=== PATIENT | male | born 1990 | race Caucasian/White ===

== ENCOUNTER 2023-08-07 12:45 | Outpatient (OUT) | payer BC, SELFPAY ==
--- NOTE | 2023-08-07 12:50 | US_ITS ---
[place] [id number] Patient Name: LYN PHIPPS MRN: [id number] date: 1990 Sex: M Assigned Patient Location: US Current Patient Location: US Accession/Order Number: [id number] Exam Date: 08/07/2023 13:05 Report Date: 08/07/2023 15:08 At the request of: KATELYN MARI Procedure: US venous doppler LE RT EXAMINATION: US venous doppler LE RT HISTORY: Right Calf Pain M79.661 COMPARISON: No relevant comparison available. TECHNIQUE: Grayscale, color and Doppler ultrasound FINDINGS: Region: Right leg Thrombus: None Flow: Normal Compressibility: Normal Augmentation: Normal US/US venous doppler LE RT IMPRESSION: No deep or superficial vein thrombus identified in the right leg *Exam performed in accordance with [facility] practice guidelines- Peripheral venous ultrasound, October 24, 2009. Electronically authenticated by: LY LOPEZ Date: 08/07/2023 15:08
== END 2023-08-07 12:46 | disposition home or self-care (01) ==
LOC: US 12:46
PROVIDERS: PCP Nurse Practitioner Family; Visit Provider Nurse Practitioner Family
DX: M79.661 Pain in right lower leg (principal)
CPT/HCPCS: 93971

== ENCOUNTER 2023-08-11 21:51 | Emergency (ER) | payer BC, SELFPAY ==
[2023-08-11 21:55] VITALS: BP 157/87; PULSE 95; RESP 16; TEMP 36.8; O2SAT 96; BMI 46.2
--- OUTSIDE RECORDS SUMMARY | 2023-08-11 21:55 | XMS_ITS | CCD ---
Author Name Unknown Address [address] [place] [id number] Organization [facility] Care Team Providers Care Stockbroking Dealer Name Role Phone Phong Chacko MD Unavailable Unavailable Dudley Tracey Unavailable Unavailable Dudley Tracey Unavailable Unavailable Unavailable Unavailable Unavailable ELIZABETH MARI Primary Care Physician JAUN ALI T Admitting Unavailable JAUN ALI T Attending Unavailable SELINA GAMINO Primary Care Unavailable SELINA GAMINO Referring Unavailable NAXIN ALI T Admitting Unavailable NAGENESISAS, ALI T Attending Unavailable NAXIN ALI T Referring Unavailable SELINA GAMINO Primary Care Unavailable Netta Wilson Referring Unavailable Netta Wilson Attending Unavailable Dudley Tracey Primary Care Unavailab Elizabeth Julien Unavailable QUINTON Stacy, DR MCCORMICK Consulting Unavailable JACEY, ELIZABETH Primary Care Unavailable QUINTON Stacy, DR MCCORMICK Attending Unavailable QUINTON Stacy, DR MCCORMICK Admitting Unavailable MIRYAM PEPPER Consulting Unavailable ELIZABETH MARI Consulting Unavailable ELIZABETH MARI Attending Unavailable JACEY ELIZABETH Admitting Unavailable JACEY, ELIZABETH Primary Care Unavailable JACEY ELIZABETH Consulting Unavailable ELIZABETH MARI Attending Unavailable JACEY, ELIZABETH Admitting Unavailable JACYE, ELIZABETH Primary Care Unavailable JACEY, ELIZABETH Primary Care Unavailable ALYSHA ., DR MARKS Attending Unavailable HOY ., DR MARKS Admitting Unavailable ALYSHA ., DR MARKS Consulting Unavailable NILL ., DR MARTIN Procedure Practitioner Man HERNANDEZ, DR SIDNEY Roberts Consulting Unavailable RANDALL ., MR COTA Consulting Unavailable DEVON SAAVEDRA Procedure Practitioner Unavailab le NILL ., DR MARTIN Consulting Unavailable BENJAMIN ZHANG Consulting Unavailable BETHANIE RODRIGUEZ Consulting Unavailable HANNAH Stacy, HITESH Consulting Unavailable SHAIKH Carmenza RO Consulting Unavailable MYRTLE EAST Consulting Unavailable GIULIA LABOY Consulting Unavailable DEVON SAAVEDRA Consulting Unavailable [facility], ELIZABETH Primary Care Unavailable ALYSHA ., DR MARKS Attending Unavailable HOY ., DR MARKS Consulting Unavailable HOY ., DR MARKS Admitting Unavailable JESSICA, DR LY Damon Consulting Unavailable NILL ., DR MARTIN Consulting Unavailable NILL ., DR MARTIN Consulting Unavailable NILL ., DR MARTIN Attending Unavailable NILL ., DR MARTIN Admitting Unavailable JACEY, ELIZABETH Primary Care Unavailable REINALDO, DR NEO Roberts Attending Unavailable REINALDO, DR NEO Roberts Admitting [facility]available [facility] Primary Care Unavailable REINALDO, DR NEO Roberts Consulting Unavailable LALITO ., ARTHUR OFSTER Consulting UnavailBETHANIE Munoz Consulting Unavailable Mario LEE Attending Unavailable Corinna Wayne Unavailable Allergies Allergy Classification Reported Allergen(s) Allergy Type Date of Onset Reaction(s) Facility Penicillins (antibiotic) (3 sources) Penicillins; Translations: [Penicillins] Drug Allergy [facility] Work Phone: (6 sources) Penicillin; Translations: [penicillin] Drug Allergy 2 [facility]al (disorder) General Surgery [place] (2 sources) Penicillin G Drug Allergy Unknown [facility] Other (1 source) Penicillins Drug allergy (disorder) 6 [facility] Repository Medications Current Medications Medication Drug Class(es) Dates Sig (Normalized) Sig (Original) lisinopril 10 mg oral tablet (9 sources) Angiotensin Converting Enzyme Inhibitor Start: 12-06-2021 take 1 tablet by mouth once daily lisinopril 10 mg Tab 10 mg = 1 tab(s), Oral, Daily, Refills(s) 0 Start Date: 12/06/21 Status: Ordered Start: 09-01-2017 take 1 tablet by myrna th once daily Lisinopril 10 MG Oral Tablet TAKE 1 TABLET BY MOUTH EVERY DAY Quantity: 90 Refills: 0 Ordered: 06-Dec-2017 DO Start : 01-Sep-2017 Active Lisinopril Activ e methylPREDNISolone 4 mg oral tablet (1 source) Corticosteroid Start: 05-02-2023 methylPREDNISo lone 4 MG as directed Orally for daily dose take half with breakfast, half with dinner for 6 days Apr, Active Completed/Discontinued Medications Medication Drug Class(es) Dates Sig (Normalized) Sig (Original) acetaminophen 325 mg / oxyCODONE hydrochloride 5 mg oral tablet (3 sources) Opioid Agonist Start: 11-17-2020 take 1 tablet by mouth every four to six hours as needed for pain oxyCODONE-Acetami nophen 5-325 MG Oral Tablet TAKE 1 TABLET EVERY 4 TO 6 HOURS NEEDED FOR PAIN. Quantity: 18 Refills: 0 Ordered: 17-Nov-2020 Phong Chacko MD Start : 17-Nov-2020 Active ascorbic acid 1000 mg oral tablet (3 sources) Vitamin C Start: 09-29-2020 take 1 tablet by mouth once daily QC Vitamin C 1000 MG Oral Tablet TAKE 1 TABLET DAILY. Quantity: 60 Refills: 1 Ordered: 17-Nov-2020 Phong Chacko MD Start : 29-Sep-2020 Active cycloSPORINE 0.5 mg/ml ophthalmic suspension (1 source) Calcineurin Inhibitor Immunosuppressant Start: 02-12-2021 take 1 drop(s) into the eye(s) twice daily Restasis 0.05 % Ophthalmic Emulsion INSTILL 1 DROP IN EACH EYE TWICE DAILY. Quantity: 1 Refills: 3 Ordered: 12-Feb-2021 Katie GARCIA, PhD, Netta Start : 12-Feb-2021 Active Ketorolac (2 sources) Nonsteroidal Anti-inflammatory Drug, Cyclooxygenase Inhibitor Start: 09-28-2016 Toradol per 15 mg Sep, 30 mg ofloxacin 3 mg/ml ophthalmic solution (1 source) Quinolone Antimicrobial Start: 11-17-2020 take 1 drop(s) into the eye(s) four times daily Ofloxacin 0.3 % Ophthalmic Solution INSTILL 1 DROP 4 times daily into left eye Quantity: 1 Refills: 2 Phong Chacko MD Start : 17-Nov-2020 Active 10 ML Bottle prednisoLONE Acetate 1 % Ophthalmic Suspension (1 source) Corticosteroid Start: 11-17-2020 take 1 drop(s) into the eye(s) four times daily prednisoLONE Acetate 1 % Ophthalmic Suspension INSTILL 1 DROP 4 times daily Into the Left eye starting After surgery. Shake bottle. Quantity: 1 Refills: 2 Phong Chacko MD Start : 17-Nov-2020 Active 15 ML Bottle predniSONE 20 mg oral tablet (2 sources) Start: 09-04-2022 take 1 tablet by mouth every twelve hours predniSONE 20 MG 1 tablet Orally 2 times a day for 5 day(s) Aug, Not-Taking triamcinolone acetonide 40 mg/ml injectable suspension (5 sources) Corticosteroid Start: 05-02-2023 Kenalog-40 Apr, 60 mg Start: 09-04-2022 Kenalog-40 Aug, 40 mg Start: 09-28-2016 KENALOG - 10 m g Sep, 40 mg Problems Active Problems Problem Classification Problem Date Documented Da te Episodic/Chronic Allergic reactions (2 sources) Unspecified contact dermatitis, unspecified cause; Translations: [Allergic contact dermatitis due to plants, except food] Episodic Asthma (6 sources) Asthma; Translations: [Unspecified asthma with (acute) exacerbation] Onset: 11-30-2021 12-06-2021 Chronic Biliary tract disease (6 sources) Bile duct leakage; Translations: [Disorder of biliary tract] 12-07-2021 Chronic Diseases of white blood cells (1 source) Elevated white blood cell count, unspecified; Translations: [ELEVATED WHITE BLOOD CELL COUNT UNS] Onset: 01-06-2022 Chronic Essential hypertension (5 sources) Hypertensive disorder; Translations: [Essential (primary) hypertension] Onset: 10-31-2022 12-06-2021 Chronic Inflammation; infection of eye (except that caused by tuberculosis or sexually transmitteddisease) (1 source) Atopic conjunctivitis; Translations: [Acute atopic conjunctivitis] Episodic Other aftercare (1 source) Other roasterman (current) drug therapy; Translations: [OTH SNF CURRENT DRUG THERAPY] Onset: 10-31-2022 Episodic Other eye disorders (3 sources) Bilateral keratoconus of corneas; Translations: [Keratoconus, unspecified] Episodic Other eye disorders (3 sources) Keratoconus, unstable, bilateral; Translations: [Keratoconus, unstable, bilateral] Episodic Other eye disorders (1 source) Dry eyes; Translations: [Tear film insufficiency, unspecified] Episodic Other nutritional; endocrine; and metabolic disorders (1 source) Morbid obesity; Translations: [Morbid (severe) obesity due to excess calories] Onset: 12-07-2021 Chronic Other nutritional; endocrine; and metabolic disorders (9 sources) Body mass index 40+ - severely obese; Translations: [Body mass index (BMI) 40.0-44.9, adult] Onset: 12-10-2021 12-07-2021 Chronic Other nutritional; endocrine; and metabolic disorders (4 sources) Obesity Onset: 11-30-2021 12-06-2021 Chronic Other nutritional; endocrine; and metabolic disorders (1 source) Morbid (severe) obesity due to excess calories; Translations: [MORBID SEVERE OBES D/T EXCESS KHANH] Onset: 12-14-2021 Chronic Other nutritional; endocrine; and metabolic disorders (1 source) Body mass index (BMI) 45.0-49.9, adult; Translations: [BODY MASS INDEX BMI 45.0-49.9 ADULT] Onset: 01-04-2022 Chronic Other nutritional; endocrine; and metabolic disorders (1 source) Disorder of urea cycle metabolism, unspecified; Translations: [DISORDER UREA CYCLE METABOLISM UNS] Onset: 01-06-2022 Chronic Other nutritional; endocrine; and metabolic disorders (1 source) Body mass index (BMI) 40.0-44.9, adult; Translations: [BODY MASS INDEX BMI 40.0-44.9 ADULT] Onset: 01-06-2022 Chronic Other nutritional; endocrine; and metabolic disorders (1 source) Obesity, unspecified; Translations: [OBESITY UNSPECIFIED] Onset: 01-06-2022 Chronic Other upper respiratory infections (1 source) Acute upper respiratory infection, unspecified; Translations: [ACUTE UP RESPIRATORY INFECTION UNS] Onset: 10-31-2022 Episodic Residual codes; unclassified (4 sources) Obstructive sleep apnea (adult) (pediatric); Translations: [OBSTRUCTIVE SLEEP APNEA] Onset: 02-28-2022 Chronic Residual codes; unclassified (1 source) Sleep apnea, unspecified; Translations: [SLEEP APNEA UNSPECIFIED] Onset: 01-04-2022 Chronic Residual codes; unclassified (1 source) Tobacco user; Translations: [Tobacco use] Onset: 12-07-2021 Episodic Residual codes; unclassified (4 sources) Snuff user 12-07-2021 Episodic Skin and subcutaneous tissue infections (2 sources) Onychia of finger; Translations: [Paronychia of fourth finger of right hand] Episodic Substance-related disorders (5 sources) Nicotine dependence; Translations: [Nicotine dependence, chewing tobacco, uncomplicated] Onset: 11-30-2021 12-06-2021 Chronic Unclassified (2 sources) COUGH, UNSPECIFIED; Translations: [COUGH, UNSPECIFIED] Onset: 10-31-2022 Unclassified (1 source) CONTACT W/AND (SUSP) EXPOS COVID-19; Translations: [CONTACT W/AND (SUSP) EXPOS COVID-19] Onset: 01-06-2022 Past or Other Problems Problem Classification Problem Date Documented Date Episodic/Chronic Abdominal pain (2 sources) Unspecified abdominal pain; Translations: [Right upper quadrant pain] Onset: 12-28-2021 Episodic Biliary tract disease (18 sources) Acute cholecystitis; Translations: [Acute cholecystitis] Onset: 11-28-2021 Episodic Complications of surgical procedures or medical care (1 source) Other postprocedural complications and disorders of digestive system; Translations: [OTH POSTPROC COMP D/O DIGESTIVE SYS] Onset: 01-06-2022 Episodic Fever of unknown origin (5 sources) Fever, unspecified; Translations: [FEVER UNSPECIFIED] Onset: 12-23-2021 Episodic Fluid and electrolyte disorders (2 sources) Dehydration; Translations: [Hypo-osmolality and hyponatremia] Onset: 01-04-2022 Episodic Other screening for suspected conditions (not mental disorders or infectious disease) (1 source) Other specified abnormal findings of blood chemistry; Translations: [OTH SPEC ABNORMAL FINDINGS BLD CHEM] Onset: 01-06-2022 Episodic Residual codes; unclassified (1 source) Acquired absence of other specified parts of digestive tract; Translations: [ACQ ABSENCE OTH PART DIGESTV TRACT] Onset: 12-28-2021 Episodic Residual codes; unclassified (1 source) Tobacco use; Translations: [TOBACCO USE] Onset: 12-14-2021 Episodic Residual codes; unclassified (1 source) Laparoscopic surgical procedure converted to open procedure; Translations: [LAP SURG PROC CONVERT TO OPEN PROC] Onset: 01-06-2022 Episodic Unclassified (2 sources) Sprain of left ankle; Translations: [Left ankle sprain] Unclassified (1 source) COUGH, UNSPECIFIED; Translations: [COUGH, UNSPECIFIED] Onset: 10-29-2022 NEGATED: Highlighted row has not occurred!Residual codes; unclassified (10 sources) Disease Episodic Results Test Name Value Interpretation Reference Range Facility XR CHEST 2 Von 10-29-2022 XR CHEST 2 V EXAM: XR CHEST 2 V INDICATION: SHORTNESS OF BREATH. COMPARISON: Chest radiograph 12/02/2021. TECHNIQUE: Two views of the chest FINDINGS: Normal cardiomediastinal contours. Clear lungs. No pleural effusion or pneumothorax. No acute osseous abnormality. IMPRESSION: No acute cardiopulmonary process. Electronically authenticated by: MIRYAM PEPPER Date: 2022-10-29 11:56 Normal [facility] Ophthalmic Eye Examon 2021 Ophthalmic Eye Exam DOCUMENT REVIEWED BY: Netta Chen OD PhD DOCUMENT SIGNED ELECTRONICALLY BY Netta Chen OD, PhD ON 04/19/2022 03:57:[address] [address] [phone] THIS DOCUMENT WAS CREATED ON: 04/19/2022 03:56:22 PM BY: Netta Cohn performed [id number] Exam Date: Tuesday, April 19, 2022 PATIENT NAME: JOSEPH SCOTT DATE: 1990 AGE: 32 GENDER: Male RACE: Other Race History Chief Complaint/Reason For Visit: Problem-Routine CL eye exam, Vision is stable, some scratchiness, 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 Netta Chen OD PhD and scribed by Mio Chen OD, PhD PAST MEDICAL HISTORY: OCULAR SIGNIFICANT: Hypertension CURRENT MEDICATIONS: Lisinopril 10 MG Oral Tablet - #90 Tablet, TAKE 1 TABLET BY MOUTH EVERY DAY[Reported] oxyCODONE-Acetaminophen 5-325 MG Oral Tablet - #18 Tablet, TAKE 1 TABLET EVERY 4 TO 6 HOURS NEEDED FOR PAIN., NO REFILLS, Evaluate: 20-Nov-2020 QC Vitamin C 1000 MG Oral Tablet - #60 Tablet, TAKE 1 TABLET DAILY., 1 refill, Evaluate: 17-Mar-2021 Restasis 0.05 % Ophthalmic Emulsion - #1 60 Unit Plas Cont, Emulsion, INSTILL 1 DROP IN EACH EYE TWICE DAILY., 3 refills, Evaluate ALLERGIES: Penicillins REVIEW OF SYSTEMS: CARDIOVASCULAR:HTN All other Review Of Systems negative Exam ORIENTATION, MOOD AND AFFECT: Alert AND oriented x3 RIGHT EYE LEFT EYE UNCORRECTED VA N/A N/A MANIFEST REFRACTION -2.00 -4.25 x 055 -5.00 -3.50 x 100 BEST AGUSTO FINAL VA 20/300 20/150 OVER REFRACTION -0.50 SPHER -0.75 SPHER OVER REFRACTION VA 20/25+1 20/25-3 VISION WITH CONTACT LENSES 20/40+2 20/40-2 PRESSURE METHOD: Applanation Applanation PRESSURES: 16 16 DATE-TIME: 04/19/2022 10:32:01 AM 04/19/2022 10:32:01 AM RIVER CAPTAIN: jessica lopez EXTERNAL EYE EXAM: LID: Good Position Good Position PUPIL: PERRL/no APD PERRL/no APD ADNEXA: Normal Normal MUSCLE BALANCE: Ortho OCULAR MOTILITY: Full ANTERIOR SEGMENT EXAM: TEARFILM: Good Good CONJUNCTIVA: 2+ injection; 3+ inferior and 2+ injection; 3+ inferior and superior papillary rxn and superior papillary rxn and erythema erythema CORNEA: F ring, thinning, moderate F ring, thinning, moderate central scars/moderate haze central haze ANTERIOR CHAMBER: Deep and quiet Deep and quiet IRIS: Round and reactive Round and reactive LENS: Clear Clear ANTERIOR VITREOUS: Clear Clear FUNDUS EXAM: DILATION and NUMBING DROPS: Tropicamine 1% OU 04/19/2022 10:32:02 AM CUP TO DISC: .3 .3 OPTIC DISC: [place] and sharp [place] and sharp VITREOUS: Clear Clear MACULA: Normal reflex Normal reflex VESSELS: Normal Normal PERIPHERY: No tears, breaks, or holes No tears, breaks, or holes VIEW IN OUT: VIEW OUT VIEW OUT CONTACT LENS FITTING: OD LENSTYPE: RGP SERIES: synergeyes VS BASECURVE: 8.4 DIAMETER: 16.0 DVA: 20-2 OVERREFRACT: plano ROTATION: slight POSITION: excellent MOVEMENT: yes, slight COVERAGE OVER EYE: excellent RESULT: Acceptable POWER: +1.50 FLPOSITION: 300 clearance VAOR: 20/20-2 COLOR: Blue RESULTANT POWER: +1.50 LENS NOTES: VLT 3600 34-40 edge BLUEDOT: Y LENTICULAR: N RENDERING DOCTOR: Netta Chen OD PhD PROTEIN BUILDUP: surface deposits=excessive OD LENSTYPE: RGP SERIES: synergeyes VS BASECURVE: 8.4 DIAMETER: 16.0 DVA: 20-2 OVERREFRACT: plano ROTATION: slight POSITION: excellent MOVEMENT: yes, slight COVERAGE OVER EYE: excellent RESULT: Pending POWER: +1.50 FLPOSITION: 300 clearance VAOR: 2020-2 COLOR: Blue RESULTANT POWER: +1.50 LENS NOTES: VLT 3600 34-40 edge BLUEDOT: Y LENTICULAR: N RENDERING DOCTOR: Netta Chen OD PhD PROTEIN BUILDUP: surface deposits=excessive OD LENSTYPE: RGP SERIES: synergeyes VS BASECURVE: 8.4 DIAMETER: 16.0 DVA: 20-2 OVERREFRACT: plano ROTATION: slight POSITION: excellent MOVEMENT: yes, slight COVERAGE OVER EYE: excellent RESULT: Pending POWER: +1.50 FLPOSITION: 300 clearance VAOR: 20-2 COLOR: Blue RESULTANT POWER: +1.50 LENS NOTES: VLT 3600 34-40 edge BLUEDOT: Y LENTICULAR: N RENDERING DOCTOR: Netta Chen OD PhD OD LENSTYPE: RGP SERIES: synergeyes VS BASECURVE: 8.4 DIAMETER: 16.0 DVA: 20-2 OVERREFRACT: plano ROTATION: slight POSITION: excellent MOVEMENT: yes, slight COVERAGE O (more content not included)... Normal [employer] 2022 Forms [id number]:127 Normal [facility] Ambulatory Visit Summaryon 0 01-07-2022 Ambulatory Visit Summary JOSEPH SCOTT :1990 Visit Date:01/07/2022 Ambulatory Visit Instructions Your Diagnosis Acute gangrenous cholecystitis Your Care Team Attending Physician - JASIEL THAYER, Mario Roberts Primary Care Physician - ELIZABETH MARI CNP This Is Your Medications List Contact prescribing physician if questions or concerns lisinopril (lisinopril 10 mg Tab) Procedures Performed Cholecystectomy (11/29/2021), EGD - Esophagogastroduodenoscopy. Medications What How Much When Instructions Unchanged lisinopril (lisinopril 10 mg Tab) 1 Tablets By Mouth Every day Contact prescribing physician if questions or concerns Allergies penicillin (Hives) Problems Ongoing - Any problem that you are currently receiving treatment for. Acute gangrenous cholecystitis Asthma BMI 40.0-44.9, adult Cystic duct leak HTN (hypertension) Nicotine dependence Obesity Obesity, morbid, BMI 40.0-49.9 Snuff user Normal [facility] General Surgery Office/Clini c Noteon 01-07-2022 General Surgery Office/Clinic Note Chief Complaint post operative follow up HPI Staff 39 day post operative follow up post cholecystectomy. Reports intermittent RUQ pain, denies incisional pain. Denies bleeding or drainage from incision. Bowels moving well. History of Present Illness 5 1/2 weeks s/p subtotal fenestrated open cholecystectomy for gangrenous cholecystitis, and ERCP with stent placement; doing well, had stent removed 9 days ago; had episode of LUQ pain and fever 2 weeks ago, negative w/u at [facility] ED, including chest/abd/pelvis ct, blood work and blood cultures; some intermittent sharp RUQ pains; not taking any pain meds. no fevers since then, normal bms, eating well. Review of Systems ROS - Provider Constitutional: no fever, no sweats, no weight loss. Eyes: no glasses, no blurred vision, no visual loss. ENMT: no dentures, no hoarseness, no swallowing difficulties, no hearing loss, no ear infection(s), no nose bleeds. Cardiovascular: normal blood pressure, no chest pain, regular heartbeat, no heart murmur. Respiratory: no shortness of breath, no cough, no asthma, no wheezing. Gastrointestinal: no nausea, no vomiting, no diarrhea, no constipation, no blood in stool, no change in bowel habits, mild abdominal pain, no hepatitis. Genitourinary: no kidney stones, no urine infection, no dysuria. Musculoskeletal: no pain, no weakness. Skin: no changing moles, no rash, no skin lumps. Neurologic: no seizures, no epilepsy, no headache. Psychiatric: no emotional or psychiatric problem. Heme/Lymph: no bleeding problems, no anemia, no blood clots, no transfusions. Allergy/Immunologic: no swollen lymph nodes/glands, no IV drug abuse. Other: Additional ROS info: Except as noted in the above Review of Systems and in the History of Present Illness, all other systems have been reviewed and are negative or noncontributory. Physical Exam abd: obese, soft, normal bs, incisions healing well, no hernias, no drainage. Assessment/Plan 1. Acute gangrenous cholecystitis (K81.0: Acute cholecystitis) doing well; return to work without restrictions; recommend abd wall support/belt if heavy lifting; call with problems/questions Follow-up No qualifying data available Problem List/Past Medical History Ongoing Acute gangrenous cholecystitis Asthma BMI 40.0-44.9, adult Cystic duct leak HTN (hypertension) Nicotine dependence Obesity Obesity, morbid, BMI 40.0-49.9 Snuff user Historical No qualifying data Procedure/Surgical History Cholecystectomy (11/29/2021), EGD - Esophagogastroduodenoscopy. Medications lisinopril 10 mg Tab, 10 mg= 1 tab(s), Oral, Daily Allergies penicillin (Hives) Social History Alcohol - Denies Alcohol Use, 12/07/2021 Substance Abuse - Denies Substance Abuse, 12/07/2021 Tobacco Former smoker, quit more than 30 days ago Tobacco Use:. Smokeless tobacco user within last 30 days Smokeless Tobacco Use:. Cigarettes, Oral, Started age 15.0 Years. Stopped age 21 Years. Yes, 12/07/2021 Family History Diabetes mellitus type 2: Mother. Hypertension: Mother and Sister. Primary malignant neoplasm of prostate: Father. Normal [facility] Comment on above: Result Comment: Elec tronically Signed By: JASIEL THAYER, Mairo R\.br\Date and Time Signed: 01/07/22 10:53 EDT Provider Letter FTon 01-07 Provider Letter [facility] January 07, 2022 JOSEPH SCOTT [address] [place] [id number] JOSEPH SCOTT 1990 To Whom It May Concern, The above named person may return to work without restrictions 2022. Sincerely, Dr. Mario Lee MD General Surgery [facility] Endoscopy Reporton Endoscopy Report MR#: [id number] [facility] Pt. Name: Joseph Scott Surgery Date: 12/29/2021 Room #: 0C Date of : 1990 PROCEDURE NOTE ATTENDING: Jacob Zamorano M.D. PROCEDURE PERFORMED: ERCP with stent removal. MEDICATIONS: General anesthesia administered by Anesthesia team. INDICATIONS: History of bile leak, status post biliary stent placement. NUT PROCESSING SUPERVISOR: Branden Lui MD, Gastroenterology fellow. PROCEDURE IN DETAIL: After obtaining the informed consent, which included the risks, benefits, alternatives, and complications; complications including bleeding, perforation, and reaction to medications in addition to pancreatitis, infection, diabetes, surgery, prolonged hospitalization, and remote possibility of , the patient agreed to proceed with the procedure. The patient was placed in the semiprone position. After receiving general anesthesia, administered by anesthesia team, after which the Olympus video side-viewing duodenoscope was introduced through the mouth down to the esophagus, stomach, then to the 1st and 2nd part of the duodenum with no difficulties. The major papilla was identified and the previously placed metallic fully covered biliary stent was noted protruding through the papilla into the duodenal lumen. The stent was removed with the rat-tooth forceps. With the use of the RX-44 sphincterotome loaded with a 0.035 inch guidewire, the common bile duct was re-cannulated and contrast was injected. The sphincterotome was then removed over the guidewire and a 12-15 mm injecting above retrieval balloon catheter was then advanced over the guidewire into the common bile duct. Occlusive cholangiogram was performed and the cystic duct was identified. No contrast extravasation was noted. The balloon with the guidewire were both removed, followed by removal of the scope. The procedure was performed under fluoroscopic guidance and I did the interpretation of the fluoroscopic images. The patient tolerated the procedure well and was sent to the recovery room in stable condition. IMPRESSION: 1. Successful removal of previously placed metallic biliary stent. 2. Complete resolution of the bile leak. Occlusive cholangiogram revealed no extravasation of contrast at the cystic duct stump. PLAN: 1. We will see the patient on a p.r.n. basis. 2. Clear liquid diet today and advance in a.m. I was present in the endoscopy room during the entire procedure to supervise the followup. Electronically Signed by: Jacob Zamorano M.D. 01/13/2022 12:34 P Jacob Zamorano M.D. Date Dict: 12/29/2021/08:37 P/Jacob Zamorano M.D. Date Trans: 12/30/2021 08:11 A/zuleyka [id number] cc: Selina Gamino M.D. [address], [facility] [id number] [place] [facility] ERCPon 12-29-2021 ERCP [facility] Department of Radiology [address] [place] [id number] Patient Name: JOSEPH SCOTT : 1990 Sex: M Age: Race: White Pt. Location: [facility] [place] Patient Status: Ordered Date: 12/29/2021 5:00:00 AM Completed Date: 12/29/2021 02:07 PM Requesting Provider: JACOB ZAMORANO Attending Provider: JACOB ZAMORANO Report Copy To: Signs & Symptoms: K83.9 Disease of biliary tract, unspecified I10 History: [place] Comments: , Appointment Date: 12/29/2021 , Appointment Time: 1300 , Appointment Date: 12/29/2021 , Appointment Time: 1300 , , , Ordering Provider - JULIAN RIVERA MD , Exam: ERCP ERCP 12/29/2021 2:07 PM CLINICAL INDICATIONS: K83.9 Disease of biliary tract, unspecified I10 TECH COMMENTS:ERCP with dr. zamorano fl time 3:22 minutes 120.69 mGy 13 images + dose COMPARISON: None. FINDINGS: 13 images are submitted for review from ERCP performed by the GI lab. Endoscope is passed in an antegrade fashion, and the tip of the endoscope lies in the second portion of the duodenum. The common bile duct was cannulated and contrast injected in a retrograde direction, opacifying the biliary tree. The patient's wall stent was removed.. Fluoroscopy Time: 3.22 minutes. IMPRESSION: This dictation is for documentation purposes only. Please see the GI procedure note for further details. Electronically signed: Gina Otoole. Transcribed by: [email or web address], User Resident: Electronically Signed by: GINA OTOOLE @ 12/30/2021 02:58 PM Normal [facility] Comment on above: Order Comment: , Kamaljit ointment Date: 12/29/2021 , Appointment Time: 1300 , Appointment Date: 12/29/2021 , Appointment Time: 1300 , , , Ordering Provider - JULIAN RIVERA MD , POC GLUCOSE LABon 12-29-2021 Glucose [Mass/Vol] 90 mg/dL Normal 70-100 [facility] Comment on above: Performed By: #### [id number] #### [facility] [address] [place] [address], [facility] AMYLASEon 12-23-2021 Amylase [Catalytic activity/Vol] 58 U/L Normal 25-115 [facility] Comment on above: Performed By: #### E RUR #### [facility] [address] [address] [address] Wallace Chandler CBC AUTO DIFFon 12-23-2021 BASO # 0.0 103/ul Normal 0.0-0.1 [facility] Comment on above: Performed By: #### C BC #### [facility] [address] [place] [address] Dr. Wallace Chandler Basophils/100 WBC (Bld) 0.4 % Normal 0.2-2.0 [facility] Comment on above: Performed By: #### C BC #### [facility] [address] [place] [address] Dr. Wallace Chandler EO # 0.4 103/ul Normal 0.0-0.7 [facility] Comment on above: Performed By: #### C BC #### [facility] [address] [place] [address] Dr. Wallace Chandler Eosinophils/100 WBC (Bld) 4.3 % Normal 0.9-7.0 [facility] Comment on above: Performed By: #### C BC #### [facility] [address] [place] [address] Dr. Wallace Chandler Erythrocyte distribution width (RBC) [Ratio] 12.5 % Normal 11.0-15.0 [facility] Comment on above: Performed By: #### C BC #### [facility] [address] [place] [address] Dr. Wallace Chandler Hematocrit (Bld) [Volume fraction] 46.8 % Normal 42.0-54.0 [facility] Comment on above: Performed By: #### C BC #### [facility] [address] [place] [address] Dr. Wallace Chandler Hemoglobin (Bld) [Mass/Vol] 15.1 g/dL Normal 14.0-18.0 [facility] Comment on above: Performed By: #### C BC #### [facility] [address] [place] [address] Dr. Wallace Chandler IG # 0.03 10e3/ul Normal 0.00-0.03 [facility] Comment on above: Performed By: #### C BC #### [facility] [address] [place] [address] Dr. Wallace Chandler IG % 0.3 % Normal 0.0-0.5 [facility] Comment on above: Performed By: #### C BC #### [facility] [address] [place] [address] Dr. Wallace Chandler LYMPH # 1.2 103/ul Normal 1.2-3.8 [facility] Comment on above: Performed By: #### C BC #### [facility] [address] [place] [address] Dr. Wallace Chandler Lymphocytes/100 WBC (Bld) 11.9 % Critically low 20.5-60.0 [facility] Comment on above: Performed By: #### C BC #### [facility] [address] [place] [address] Dr. Wallace Chandler MANUAL DIFF REQ NO Normal [facility] Comment on above: Performed By: #### C BC #### [facility] [address] [place] [address] Dr. Wallace Chandler MCH (RBC) [Entitic mass] 28.3 pg Normal 25.9-34.0 [facility] Comment on above: Performed By: #### C BC #### [facility] [address] [place] [address] Dr. Wallace Chandler MCHC (RBC) [Mass/Vol] 32.3 g/dL Normal 29.9-35.2 [facility] Comment on above: Performed By: #### C BC #### [facility] [address] [place] [address] Dr. Wallace Chandler MCV (RBC) [Entitic vol] 87.8 fL Normal 80.0-94.0 [facility] Comment on above: Performed By: #### C BC #### [facility] [address] [address] [address] Wallace Chandler MONO # 0.9 103/ul Critically high 0.3-0.8 [facility] Comment on above: Performed By: #### C BC #### [facility] [address] [address] [address] Wallace Chandler Monocytes/100 WBC (Bld) 8.4 % Normal 1.7-12.0 [facility] Comment on above: Performed By: #### C BC #### [facility] [address] [place] [address] Dr. Wallace Chandler NEUT # 7.7 103/ul Critically high 1.4-6.5 [facility] Comment on above: Performed By: #### C BC #### [facility] [address] [place] [address] Dr. Wallace Chandler Neutrophils/100 WBC (Bld) 74.7 % Normal 43.0-75.0 [facility] Comment on above: Performed By: #### C BC #### [facility] [address] [place] [address] Dr. Wallace Chandler Platelet mean volume (Bld) [Entitic vol] 9.3 fL Critically low 9.5-13.5 [facility] Comment on above: Performed By: #### C BC #### [facility] [address] [place] [address] Dr. Wallace Chandler PLT 345 103/ul Normal 150-450 [facility] Comment on above: Performed By: #### C BC #### [facility] [address] [place] [address] Dr. Wallace Chandler RBC 5.33 106/ul Normal 4.70-6.10 [facility] Comment on above: Performed By: #### C BC #### [facility] [address] [place] [address] Dr. Wallace Chandler WBC 10.4 103/ul Normal 4.0-11.0 [facility] Comment on above: Performed By: #### C BC #### [facility] [address] [address] [address] Wallace Chandler CTA CHEST WO W CONon 12-23-2 022 CTA CHEST WO W CON EXAM: CT ABD/PELV W CON, CTA CHEST WO W CON REASON FOR EXAM: Male, 31 years, Fever. TECHNIQUE: Computed tomography of the chest, abdomen and pelvis is performed in the axial projection from the lung apices to the pubic symphysis. Sagittal and coronal reconstructed images are performed. Dose reduction techniques were achieved by using automated exposure control and/or adjustment of mA and/or KVP according to patient size and/or use of iterative reconstruction technique. A total of 100 mL Omnipaque 350 IV contrast was given. Study was performed without oral contrast. COMPARISON: CT 11/28/2021 FINDINGS: CT CHEST: There is right basilar atelectasis. No pleural effusion. No mediastinal or hilar adenopathy. No pericardial effusion identified. Heart size is normal. There is suboptimal opacification of the pulmonary arteries. As visualized, no large or central pulmonary embolism. Normal thoracic aorta. Liver: There is elevation of the right hemidiaphragm. There are small hypodensities scattered throughout the liver similar to prior study. These may represent tiny cysts or hamartomas. There is a tiny amount of pneumobilia, likely reflecting recent cholecystectomy. Gallbladder: There has been a cholecystectomy. There is a small amount of soft tissue in the gallbladder fossa, measuring 1.7 x 4.6 cm, which may represent postoperative edema. A small hematoma or seroma could also be considered. There is a stent within the common duct extending to the duodenum. There is a small amount of debris or fluid within the stent. Spleen: The spleen is normal. Pancreas: The pancreas is normal. Adrenal glands: The adrenal glands are normal bilaterally. Right kidney: The kidney is normal in size. There is no renal calculus or hydronephrosis. Left kidney: The kidney is normal in size. There is no renal calculus or hydronephrosis. Stomach: The stomach is normal. Small bowel: The small bowel is normal. Large bowel: The colon is normal. Appendix: The appendix is visualized, and is normal. Aorta: The aorta is normal IVC: The IVC is normal. Retroperitoneum: Normal retroperitoneum. Bladder: The bladder is normal. Pelvic organs: Normal prostate gland. Abdominal wall: There are subtle postoperative changes to the anterior abdominal wall. No abnormal postoperative fluid collection within the abdominal wall. Osseous structures: Normal bony structures. IMPRESSION: Contrast bolus timing is limited for evaluation of pulmonary embolism. No large or central pulmonary embolus. Thoracic aorta. Elevated right hemidiaphragm with right basilar atelectasis. Postoperative changes of cholecystectomy since the prior study. There is a minimal amount of soft tissue in the gallbladder fossa, likely representing evolving postoperative edema. A small hematoma or seroma is not completely excluded. No significant inflammatory changes are seen to suggest abscess. Biliary stent is noted, with some debris/bile within the biliary stent. Additional nonacute findings, as detailed above. Electronically authenticated by: BETHANIE RODRIGUEZ Date: 2021-12-23 21:49 Normal [facility] CULTURE BLOODon 12-23-2021 Microscopic examination of blood, culture Culture Observations: NO GROWTH AT 5 DAYS. Isolate 1 [id number] Normal [facility] Comment on above: Performed By: #### L CHARLOTTE PLATA, BMP #### [facility] [address] [address] [address] Wallace Chandler Microscopic examination of blood, culture Culture Observations: NO GROWTH AT 5 DAYS. Isolate 1 [id number] Normal [facility] Comment on above: Performed By: #### L CHARLOTTE PLATA, BMP #### [facility] [address] [address] [address] Wallace Chandler [facility] SARS-CoV-2 (COVID-19) RNA ADRIAN+probe Ql (Unsp spec) Not detected Normal NOT DETECTED [facility] Comment on above: Result Comment: When diagnostic testing is negative, the possibility of a false negative should be considered in the context of a patient's recent exposures and the presence of clinical signs and symptoms consistent with SARS-CoV-2. This test is not yet approved or cleared by the [place] FDA. When there are no FDA-approved or cleared tests available, and other criteria are met, FDA can make tests available under an emergency access mechanism called an Emergency Use Authorization (EUA). The EUA for this test is supported by the [place] of Health and Human Service's declaration that circumstances exist to justify the emergency use of in vitro diagnostics for the detection and/or diagnosis of the virus that causes COVID-19. This EUA will remain in effect for the duration of the COVID-19 declaration justifying emergency of IVDs, unless it is terminated or revoked by the FDA (after which the test may no longer be used). Performed By: #### L CHARLOTTE PLATA BMP #### [facility] [address] [place] [address] Dr. Wallace Chandler ER URINE PROFILEon 2 Bilirubin Ql (U) Negative Normal NEGATIVE [facility] Comment on above: Performed By: #### E RUR #### [facility] [address] [place] [address] Dr. Wallace Chandler Clarity (U) CLEAR Normal CLEAR [facility] Comment on above: Performed By: #### E RUR #### [facility] [address] [place] [address] Dr. Wallace Chandler Color (U) YELLOW Normal YELLOW [facility] Comment on above: Performed By: #### E RUR #### [facility] [address] [place] [address] Dr. Wallace Chandler ERUAHD A micrscopic examina tion will be performed if indicated. Normal [facility] Comment on above: Performed By: #### E RUR #### [facility] [address] [place] [address] Dr. Wallace Chandler Glucose Ql (U) Negative Normal NEGATIVE [facility] Comment on above: Performed By: #### E RUR #### [facility] [address] [place] [address] Dr. Wallace Chandler Hemoglobin Ql (U) Negative Normal NEGATIVE [facility] Comment on above: Performed By: #### E RUR #### [facility] [address] [place] [address] Dr. Wallace Chandler Ketones Ql (U) Negative Normal NEGATIVE [facility] Comment on above: Performed By: #### E RUR #### [facility] [address] [place] [address] Dr. Wallace Chandler LEUKOCYTES Negative Normal NEGATIVE [facility] Comment on above: Performed By: #### E RUR #### [facility] [address] [place] [address] Dr. Wallace Chandler Nitrite Ql (U) Negative Normal NEGATIVE [facility] Comment on above: Performed By: #### E RUR #### [facility] [address] [place] [address] Dr. Wallace Chandler pH (U) 6.0 [pH] Normal 5-9 [facility] Comment on above: Performed By: #### E RUR #### [facility] [address] [place] [address] Dr. Wallace Chandler SPEC GRAVITY 1.025 Normal 1.005-<=1.02 5 [facility] Comment on above: Performed By: #### E RUR #### [facility] [address] [place] [address] Dr. Wallace Chandler UA PROTEIN Negative Normal NEGATIVE/ TRACE [facility] Comment on above: Performed By: #### E RUR #### [facility] [address] [place] [address] Dr. Wallace Chandler UR MICRO IND NOT INDICATED Normal [facility] Comment on above: Performed By: #### E RUR #### [facility] [address] [place] [address] Dr. Wallace Chandler Urobilinogen Qn (U) 0.2 {Vladimir'U}/dL Normal 0.2 - 1.0 [facility] Comment on above: Performed By: #### E RUR #### [facility] [address] [place] [address] Dr. Wallace Chandler INFLUENZA A AND B AGon 12-23 INFLUANEGH SEE BELOW Normal [facility] Comment on above: Result Comment: Nega tive for Flu A protein angiten. Infection due to Flu A cannot be ruled out. Flu A angiten in the sample may be below the detection limit of the test. Performed By: #### E RUR #### [facility] [address] [place] [address] Dr. Wallace Chandler INFLUBNEGH SEE BELOW Normal [facility] Comment on above: Result Comment: Nega tive for Flu B protein antigen. Infection due to Flu B cannot be ruled out. Flu B antigen in the sample may be below the detection limit of the test. Performed By: #### E RUR #### [facility] [address] [place] [address] Dr. Wallace Chandler INFLUENZA A AG Negative Normal NEGATIVE SEE COMMENT [facility] Comment on above: Performed By: #### E RUR #### [facility] [address] [place] [address] Dr. Wallace Chandler INFLUENZA B AG Negative Normal NEGATIVE SEE COMMENT [facility] Comment on above: Performed By: #### E RUR #### [facility] [address] [place] [address] Dr. Wallace Chandler INTERNAL CONTROLS Within Normal Limits Normal Wi thin Normal Limits [facility] Comment on above: Performed By: #### E RUR #### [facility] [address] [place] [address] Dr. Wallace Chandler LACTATE/LACTIC ACIDon 2021 Lactate [Moles/Vol] 1.0 mmol/L Normal 0.4-1.9 [facility] Comment on above: Performed By: #### L ACT #### [facility] [address] [place] [address] Dr. Wallace Chandler LIPASEon 12-23-2021 Lipase [Catalytic activity/Vol] 124.0 U/L Normal 73.0-393.0 [facility] Comment on above: Performed By: #### E RUR #### [facility] [address] [place] [address] Dr. Wallace Chandler PH VENOUS BLOODon 12-23-2021 PCO2 VENOUS 42.6 mmHg Normal 40.0-52.0 [facility] Comment on above: Performed By: #### C BC #### [facility] [address] [place] [address] Dr. Wallace Chandler pH VENOUS 7.399 Normal 7.330-7.430 [facility] Comment on above: Performed By: #### C BC #### [facility] [address] [place] [address] Dr. Wallace Chandler PROF 14(COMP METB)on 022 Albumin [Mass/Vol] 3.8 g/dL Normal 3.4-5.0 [facility] Comment on above: Performed By: #### C BC #### [facility] [address] [place] [address] Dr. Wallace Chandler Albumin/Globulin [Mass ratio] 0.8 {ratio} Normal [facility] Comment on above: Performed By: #### C BC #### [facility] [address] [place] [address] Dr. Wallace Chandler ALP [Catalytic activity/Vol] 93 U/L Normal 46-116 [facility] Comment on above: Performed By: #### C BC #### [facility] [address] [place] [address] Dr. Wallace Chandler ALT [Catalytic activity/Vol] 83 U/L Critically high 16-63 [facility] Comment on above: Performed By: #### C BC #### [facility] [address] [place] [address] Dr. Wallace Chandler Anion gap [Moles/Vol] 13.1 mmol/L Normal [facility] Comment on above: Performed By: #### C BC #### [facility] [address] [place] [address] Dr. Wallace Chandler AST [Catalytic activity/Vol] 20 U/L Normal 15-37 [facility] Comment on above: Performed By: #### C BC #### [facility] [address] [place] [address] Dr. Wallace Chandler Bilirubin [Mass/Vol] 0.7 mg/dL Normal 0.2-1.0 [facility] Comment on above: Performed By: #### C BC #### [facility] [address] [place] [address] Dr. Wallace Chandler Calcium [Mass/Vol] 9.4 mg/dL Normal 8.5-10.1 [facility] Comment on above: Performed By: #### C BC #### [facility] [address] [place] [address] Dr. Wallace Chandler Chloride [Moles/Vol] 101 mmol/L Normal 98-107 [facility] Comment on above: Performed By: #### C BC #### [facility] [address] [address] [address] Wallace Chandler CO2 [Moles/Vol] 26.5 mmol/L Normal 21.0-32.0 [facility] Comment on above: Performed By: #### C BC #### [facility] [address] [address] [address] Wallace Chandler Creatinine [Mass/Vol] 1.01 mg/dL Normal 0.70-1.30 [facility] Comment on above: Performed By: #### C BC #### [facility] [address] [place] [address] Dr. Wallace Chandler EGFR-AF NIGERIEN >60 Normal >=60 [facility] Comment on above: Performed By: #### C BC #### [facility] [address] [place] [address] Dr. Wallace Chandler EGFR-NON AF NIGERIEN >60 Normal >=60 [facility] Comment on above: Performed By: #### C BC #### [facility] [address] [place] [address] Dr. Wallace Chandler Globulin (S) [Mass/Vol] 4.8 g/dL Normal [facility] Comment on above: Performed By: #### C BC #### [facility] [address] [place] [address] Dr. Wallace Chandler Glucose [Mass/Vol] 105 mg/dL Normal 74-106 [facility] Comment on above: Performed By: #### C BC #### [facility] [address] [place] [address] Dr. Wallace Chandler Potassium [Moles/Vol] 3.6 mmol/L Normal 3.5-5.1 [facility] Comment on above: Performed By: #### C BC #### [facility] [address] [place] [address] Dr. Wallace Chandler Protein [Mass/Vol] 8.6 g/dL Critically high 6.4-8.2 [facility] Comment on above: Performed By: #### C BC #### [facility] [address] [place] [address] Dr. Wallace Chandler Sodium [Moles/Vol] 137 mmol/L Normal 136-145 [facility] Comment on above: Performed By: #### C BC #### [facility] [address] [place] [address] Dr. Wallace Chandler Urea nitrogen [Mass/Vol] 13.0 mg/dL Normal 7.0-18.0 [facility] Comment on above: Performed By: #### C BC #### [facility] [address] [place] [address] Dr. Wallace Chandler Urea nitrogen/Creatini ne [Mass ratio] 12.9 mg/mg Normal [facility] Comment on above: Performed By: #### C BC #### [facility] [address] [place] [address] Dr. Wallace Chandler PROTIMEon 12-23-2021 INR Coag (PPP) [Relative time] 1.01 {INR} Normal [facility] Comment on above: Performed By: #### L CHARLOTTE PLATA, BMP #### [facility] [address] [place] [address] Dr. Wallace Chandler INR GUIDELINES SEE BELOW Normal [facility] Comment on above: Result Comment: TAAWNNA RED INR: 2.0 - 3.0 CONDITIONS NOT LISTED BELOW 2.5 - 3.5 FOR PROSTHETIC HEART VALVE REPLACEMENT 2.5 - 3.5 RECURRENT THROMBOSIS Performed By: #### L CHARLOTTE PLATA, BMP #### [facility] [address] [place] [address] Dr. Wallace Chandler PT Coag (PPP) [Time] 10.9 s Normal 9.0-11.6 [facility] Comment on above: Performed By: #### L CHARLOTTE PLATA, BMP #### [facility] [facility] [address] [place] [address] Dr. Wallace Chandler PTTon 12-23-2021 aPTT Coag (Bld) [Time] 29.1 s Normal 22.3-36.2 [facility] Comment on above: Performed By: #### L CHARLOTTE PLATA, BMP #### [facility] [address] [place] [address] Dr. Wallace Chandler TSHon 12-23-2021 TSH 0.593 uIU/mL Normal 0.358-3.740 [facility] Comment on above: Performed By: #### C BC #### [facility] [address] [place] [address] Dr. Wallace Chandler TSH RANGE SEE BELOW Normal [facility] Comment on above: Result Comment: <0.3 4 UIU/ml HYPERTHYROID 0.34-5.60 UIU/ml EUTHYROID >5.60 UIU/ml HYPOTHYROID Performed By: #### C BC #### [facility] [address] [place] [address] Dr. Wallace Chandler CBC AUTO DIFFon 12-09-2021 BASO # 0.1 103/ul Normal 0.0-0.1 [facility] Comment on above: Performed By: #### L CHARLOTTE PLATA, BMP #### [facility] [address] [place] [address] Dr. Wallace Chandler Basophils/100 WBC (Bld) 1.4 % Normal 0.2-2.0 [facility] Comment on above: Performed By: #### CHARLOTTE SALINAS, BMP #### [facility] [address] [place] [address] Dr. aWllace Chandler EO # 0.3 103/ul Normal 0.0-0.7 [facility] Comment on above: Performed By: #### L CHARLOTTE PLATA, BMP #### [facility] [address] [place] [address] Dr. Wallace Chandler Eosinophils/100 WBC (Bld) 4.1 % Normal 0.9-7.0 [facility] Comment on above: Performed By: #### L CHARLOTTE PLATA, BMP #### [facility] [address] [place] [address] Dr. Wallace Chandler Erythrocyte distribution width (RBC) [Ratio] 12.4 % Normal 11.0-15.0 [facility] Comment on above: Performed By: #### L CHARLOTTE PLATA, BMP #### [facility] [address] [place] [address] Dr. Wallace Chandler Hematocrit (Bld) [Volume fraction] 45.4 % Normal 42.0-54.0 [facility] Comment on above: Performed By: #### L IVER, LIPA, BMP #### [facility] [address] [place] [address] Dr. Wallace Chandler Hemoglobin (Bld) [Mass/Vol] 14.9 g/dL Normal 14.0-18.0 [facility] Comment on above: Performed By: #### L IVER, LIPA, BMP #### [facility] [address] [place] [address] Dr. Wallace Chandler IG # 0.06 10e3/ul Critically high 0.00-0.03 [facility] Comment on above: Performed By: #### L IVER, LIPA, BMP #### [facility] [address] [place] [address] Dr. Wallace Chandler IG % 0.7 % Critically high 0.0-0.5 [facility] Comment on above: Performed By: #### L IVER, LIPA, BMP #### [facility] [address] [place] [address] Dr. Wallace Chandler LYMPH # 2.1 103/ul Normal 1.2-3.8 [facility] Comment on above: Performed By: #### L IVER, LIPA, BMP #### [facility] [address] [place] [address] Dr. Wallace Chandler Lymphocytes/100 WBC (Bld) 25.7 % Normal 20.5-60.0 [facility] Comment on above: Performed By: #### L IVER, LIPA, BMP #### [facility] [address] [place] [address] Dr. Wallace Chandler MANUAL DIFF REQ NO Normal [facility] Comment on above: Performed By: #### L IVER, LIPA, BMP #### [facility] [address] [place] [address] Dr. Wallace Chandler MCH (RBC) [Entitic mass] 28.8 pg Normal 25.9-34.0 [facility] Comment on above: Performed By: #### L CHARLOTTE PLATA, BMP #### [facility] [address] [place] [address] Dr. Wallace Chandler MCHC (RBC) [Mass/Vol] 32.8 g/dL Normal 29.9-35.2 [facility] Comment on above: Performed By: #### L IVJENA LIPA, BMP #### [facility] [address] [place] [address] Dr. Wallace Chandler MCV (RBC) [Entitic vol] 87.6 fL Normal 80.0-94.0 [facility] Comment on above: Performed By: #### L IVJENA LIPA, BMP #### [facility] [address] [place] [address] Dr. Wallace Chandler MONO # 0.5 103/ul Normal 0.3-0.8 [facility] Comment on above: Performed By: #### L CLYDE PLATAA, BMP #### [facility] [address] [place] [address] Dr. Wallaec Chandler Monocytes/100 WBC (Bld) 6.5 % Normal 1.7-12.0 [facility] Comment on above: Performed By: #### L IVJENA LIPA, BMP #### [facility] [address] [place] [address] Dr. Wallace Chandler NEUT # 5.0 103/ul Normal 1.4-6.5 [facility] Comment on above: Performed By: #### L IVJENA LIPA, BMP #### [facility] [address] [place] [address] Dr. Wallace Chandler Neutrophils/100 WBC (Bld) 61.6 % Normal 43.0-75.0 [facility] Comment on above: Performed By: #### L IVJENA LIPA, BMP #### [facility] [address] [place] [address] Dr. Wallace Chandler Platelet mean volume (Bld) [Entitic vol] 8.9 fL Critically low 9.5-13.5 [facility] Comment on above: Performed By: #### L IVER, LIPA, BMP #### [facility] [address] [address] [address] Wallace Chandler PLT 515 103/ul Critically high 150-450 [facility] Comment on above: Performed By: #### L IVER, LIPA, BMP #### [facility] [address] [address] [address] Wallace Chandler RBC 5.18 106/ul Normal 4.70-6.10 [facility] Comment on above: Performed By: #### L IVER, LIPA, BMP #### [facility] [address] [address] [address] Wallace Chandlre WBC 8.1 103/ul Normal 4.0-11.0 [facility] Comment on above: Performed By: #### L IVER, LIPA, BMP #### [facility] [address] [place] [address] Dr. Wallace Chandler LIPASEon 12-09-2021 Lipase [Catalytic activity/Vol] 429.0 U/L Critically high 73.0-393.0 [facility] Comment on above: Performed By: #### L IVER LIPA, BMP #### [facility] [address] [address] [address] Wallace Chandler LIVER PROFILEon 12-09-2021 Albumin [Mass/Vol] 3.4 g/dL Normal 3.4-5.0 [facility] Comment on above: Performed By: #### L IVER, LIPA, BMP #### [facility] [address] [place] [address] Dr. Wallace Chandler Albumin/Globulin [Mass ratio] 0.7 {ratio} Normal [facility] Comment on above: Performed By: #### L IVER, LIPA, BMP #### [facility] [address] [place] [address] Dr. Wallace Chandler ALP [Catalytic activity/Vol] 85 U/L Normal 46-116 [facility] Comment on above: Performed By: #### L IVER, LIPA, BMP #### [facility] [address] [address] [address] Wallace Chandler ALT [Catalytic activity/Vol] 99 U/L Critically high 16-63 [facility] Comment on above: Performed By: #### L IVER, LIPA, BMP #### [facility] [address] [address] [address] Wallace Chandler AST [Catalytic activity/Vol] 26 U/L Normal 15-37 [facility] Comment on above: Performed By: #### L IVER, LIPA, BMP #### [facility] [address] [place] [address] Dr. Wallace Chandler BILI, CONJUGATED 0.1 mg/dL Normal 0.0-0.2 [facility] Comment on above: Performed By: #### L IVER, LIPA, BMP #### [facility] [address] [place] [address] Dr. Wallace Chandler Bilirubin [Mass/Vol] 0.3 mg/dL Normal 0.2-1.0 [facility] Comment on above: Performed By: #### L IVER, LIPA, BMP #### [facility] [address] [place] [address] Dr. Wallace Chandler Globulin (S) [Mass/Vol] 4.9 g/dL Normal [facility] Comment on above: Performed By: #### L IVER, LIPA, BMP #### [facility] [address] [place] [address] Dr. Wallace Chandler Protein [Mass/Vol] 8.3 g/dL Critically high 6.4-8.2 [facility] Comment on above: Performed By: #### L IVER, LIPA, BMP #### [facility] [address] [place] [address] Dr. Wallace Chandler PROF CHEM 8 (BAS METB)on Anion gap [Moles/Vol] 12.5 mmol/L Normal [facility] Comment on above: Performed By: #### L IVER, LIPA, BMP #### [facility] [address] [place] [address] Dr. Wallace Chandler Calcium [Mass/Vol] 9.5 mg/dL Normal 8.5-10.1 [facility] Comment on above: Performed By: #### CHARLOTTE SALINAS, BMP #### [facility] [address] [address] [address] Wallace Chandler Chloride [Moles/Vol] 103 mmol/L Normal 98-107 [facility] Comment on above: Performed By: #### CHARLOTTE SALINAS, BMP #### [facility] [address] [place] [address] Dr. Wallace Chandler CO2 [Moles/Vol] 28.5 mmol/L Normal 21.0-32.0 [facility] Comment on above: Performed By: #### CHARLOTTE SALINAS, BMP #### [facility] [address] [place] [address] Dr. Wallace Chandler Creatinine [Mass/Vol] 0.92 mg/dL Normal 0.70-1.30 [facility] Comment on above: Performed By: #### CHARLOTTE SALINAS, BMP #### [facility] [address] [place] [address] Dr. Wallace Chandler EGFR-AF NIGERIEN >60 Normal >=60 [facility] Comment on above: Performed By: #### CHARLOTTE SALINAS, BMP #### [facility] [address] [place] [address] Dr. Wallace Chandler EGFR-NON AF NIGERIEN >60 Normal >=60 [facility] Comment on above: Performed By: #### CHARLOTTE SALINAS, BMP #### [facility] [address] [place] [address] Dr. Wallace Chandler Glucose [Mass/Vol] 120 mg/dL Critically high 74-106 [facility] Comment on above: Performed By: #### CHARLOTTE SALINAS, BMP #### [facility] [address] [place] [address] Dr. Wallace Chandler Potassium [Moles/Vol] 4.0 mmol/L Normal 3.5-5.1 [facility] Comment on above: Performed By: #### CHARLOTTE SALINAS, BMP #### [facility] [address] [address] [address] Wallace Chandler Sodium [Moles/Vol] 140 mmol/L Normal 136-145 [facility] Comment on above: Performed By: #### L CHARLOTTE PLATA, BMP #### [facility] [address] [address] [address] Wallace Chandler Urea nitrogen [Mass/Vol] 20.0 mg/dL Critically high 7.0-18.0 [facility] Comment on above: Performed By: #### L CHARLOTTE PLATA, BMP #### [facility] [address] [address] [address] Wallace Chandler Urea nitrogen/Creatini ne [Mass ratio] 21.7 mg/mg Normal [facility] Comment on above: Performed By: #### L CHARLOTTE PLATA, BMP #### [facility] [address] [address] [address] Wallace Chandler WOUND CULTUREon 12-07-2021 Aerobic Culture Final report Normal [facility] Comment on above: Performed By: #### C VIRA #### [facility] [address] [place] [address] Dr. Wallace Chandler Anaerobic Culture Final report Normal [facility] Comment on above: Performed By: #### C KENDALLMAN #### [facility] [address] [place] [address] Dr. Wallace Chandler Result 1 Comment Normal [facility] Comment on above: Result Comment: No g rowth in 36 - 48 hours. Performed By: #### C KENDALLMAN #### [facility] [address] [place] [address] Dr. Wallace Chandler Result Comment: No a naerobes recovered. AMYLASEon 12-03-2021 Amylase [Catalytic activity/Vol] 160 U/L Critically high 25-115 [facility] Comment on above: Performed By: #### E RUR #### [facility] [address] [place] [address] Dr. Wallace Chandler CBC AUTO DIFFon 12-03-2021 BASO # 0.1 103/ul Normal 0.0-0.1 [facility] Comment on above: Performed By: #### E RUR #### [facility] [address] [place] [address] Dr. Wallace Chandler Basophils/100 WBC (Bld) 0.9 % Normal 0.2-2.0 [facility] Comment on above: Performed By: #### E RUR #### [facility] [address] [place] [address] Dr. Wallace Chandler EO # 0.6 103/ul Normal 0.0-0.7 [facility] Comment on above: Performed By: #### E RUR #### [facility] [address] [place] [address] Dr. Wallace Chandler Eosinophils/100 WBC (Bld) 8.7 % Critically high 0.9-7.0 [facility] Comment on above: Performed By: #### E RUR #### [facility] [address] [place] [address] Dr. Wallace Chandler Erythrocyte distribution width (RBC) [Ratio] 12.8 % Normal 11.0-15.0 [facility] Comment on above: Performed By: #### E RUR #### [facility] [address] [place] [address] Dr. Wallace Chandler Hematocrit (Bld) [Volume fraction] 37.4 % Critically low 42.0-54.0 [facility] Comment on above: Performed By: #### E RUR #### [facility] [address] [place] [address] Dr. Wallace Chandler Hemoglobin (Bld) [Mass/Vol] 12.2 g/dL Critically low 14.0-18.0 [facility] Comment on above: Performed By: #### E RUR #### [facility] [address] [place] [address] Dr. Wallace Chandler IG # 0.03 10e3/ul Normal 0.00-0.03 [facility] Comment on above: Performed By: #### E RUR #### [facility] [address] [place] [address] Dr. Wallace Chandler IG % 0.5 % Normal 0.0-0.5 [facility] Comment on above: Performed By: #### E RUR #### [facility] [address] [place] [address] Dr. Wallace Chandler LYMPH # 1.7 103/ul Normal 1.2-3.8 [facility] Comment on above: Performed By: #### E RUR #### [facility] [address] [place] [address] Dr. Wallace Chandler Lymphocytes/100 WBC (Bld) 25.2 % Normal 20.5-60.0 [facility] Comment on above: Performed By: #### E RUR #### [facility] [address] [place] [address] Dr. Wallace Chandler MANUAL DIFF REQ NO Normal [facility] Comment on above: Performed By: #### E RUR #### [facility] [address] [place] [address] Dr. Wallace Chandler MCH (RBC) [Entitic mass] 28.7 pg Normal 25.9-34.0 [facility] Comment on above: Performed By: #### E RUR #### [facility] [address] [place] [address] Dr. Wallace Chandler MCHC (RBC) [Mass/Vol] 32.6 g/dL Normal 29.9-35.2 [facility] Comment on above: Performed By: #### E RUR #### [facility] [address] [place] [address] Dr. Wallace Chandler MCV (RBC) [Entitic vol] 88.0 fL Normal 80.0-94.0 [facility] Comment on above: Performed By: #### E RUR #### [facility] [address] [place] [address] Dr. Wallace Chandler MONO # 0.6 103/ul Normal 0.3-0.8 [facility] Comment on above: Performed By: #### E RUR #### [facility] [address] [place] [address] Dr. Wallace Chandler Monocytes/100 WBC (Bld) 9.5 % Normal 1.7-12.0 [facility] Comment on above: Performed By: #### E RUR #### [facility] [address] [place] [address] Dr. Wallace Chandler NEUT # 3.6 103/ul Normal 1.4-6.5 [facility] Comment on above: Performed By: #### E RUR #### [facility] [address] [place] [address] Dr. Wallace Chandler Neutrophils/100 WBC (Bld) 55.2 % Normal 43.0-75.0 [facility] Comment on above: Performed By: #### E RUR #### [facility] [address] [place] [address] Dr. Wallace Chandler Platelet mean volume (Bld) [Entitic vol] 9.3 fL Critically low 9.5-13.5 [facility] Comment on above: Performed By: #### E RUR #### [facility] [address] [place] [address] Dr. Wallace Chandler PLT 348 103/ul Normal 150-450 [facility] Comment on above: Performed By: #### E RUR #### [facility] [address] [place] [address] Dr. Wallace Chandler RBC 4.25 106/ul Critically low 4.70-6.10 [facility] Comment on above: Performed By: #### E RUR #### [facility] [address] [place] [address] Dr. Wallace Chandler WBC 6.6 103/ul Normal 4.0-11.0 [facility] Comment on above: Performed By: #### E RUR #### [facility] [address] [place] [address] Dr. Wallace Chandler LIPASEon 12-03-2021 Lipase [Catalytic activity/Vol] 1030.0 U/L Critically high 73.0-393.0 [facility] Comment on above: Result Comment: repe ated Performed By: #### E RUR #### [facility] [address] [place] [address] Dr. Wallace Chandler PROF 14(COMP METB)on 022 Albumin [Mass/Vol] 2.3 g/dL Critically low 3.4-5.0 [facility] Comment on above: Performed By: #### E RUR #### [facility] [address] [place] [address] Dr. Wallace Chandler Albumin/Globulin [Mass ratio] 0.6 {ratio} Normal [facility] Comment on above: Performed By: #### E RUR #### [facility] [address] [place] [address] Dr. Wallace Chandler ALP [Catalytic activity/Vol] 50 U/L Normal 46-116 [facility] Comment on above: Performed By: #### E RUR #### [facility] [address] [place] [address] Dr. Wallace Chandler ALT [Catalytic activity/Vol] 41 U/L Normal 16-63 [facility] Comment on above: Performed By: #### E RUR #### [facility] [address] [place] [address] Dr. Wallace Chandler Anion gap [Moles/Vol] 10.6 mmol/L Normal [facility] Comment on above: Performed By: #### E RUR #### [facility] [address] [place] [address] Dr. Wallace Chandler AST [Catalytic activity/Vol] 24 U/L Normal 15-37 [facility] Comment on above: Performed By: #### E RUR #### [facility] [address] [place] [address] Dr. Wallace Chandler Bilirubin [Mass/Vol] 0.3 mg/dL Normal 0.2-1.0 [facility] Comment on above: Performed By: #### E RUR #### [facility] [address] [place] [address] Dr. Wallace Chandler Calcium [Mass/Vol] 8.2 mg/dL Critically low 8.5-10.1 [facility] Comment on above: Performed By: #### E RUR #### [facility] [address] [place] [address] Dr. Wallace Chandler Chloride [Moles/Vol] 103 mmol/L Normal 98-107 [facility] Comment on above: Performed By: #### E RUR #### [facility] [address] [place] [address] Dr. Wallace Chandler CO2 [Moles/Vol] 29.0 mmol/L Normal 21.0-32.0 [facility] Comment on above: Performed By: #### E RUR #### [facility] [address] [place] [address] Dr. Wallace Chandler Creatinine [Mass/Vol] 0.84 mg/dL Normal 0.70-1.30 [facility] Comment on above: Performed By: #### E RUR #### [facility] [address] [place] [address] Dr. Wallace Chandler EGFR-AF NIGERIEN >60 Normal >=60 [facility] Comment on above: Performed By: #### E RUR #### [facility] [address] [place] [address] Dr. Wallace Chandler EGFR-NON AF NIGERIEN >60 Normal >=60 [facility] Comment on above: Performed By: #### E RUR #### [facility] [address] [place] [address] Dr. Wallace Chandler Globulin (S) [Mass/Vol] 4.0 g/dL Normal [facility] Comment on above: Performed By: #### E RUR #### [facility] [address] [place] [address] Dr. Wallace Chandler Glucose [Mass/Vol] 107 mg/dL Critically high 74-106 [facility] Comment on above: Performed By: #### E RUR #### [facility] [address] [place] [address] Dr. Wallace Chandler Potassium [Moles/Vol] 3.6 mmol/L Normal 3.5-5.1 [facility] Comment on above: Performed By: #### E RUR #### [facility] [address] [place] [address] Dr. Wallace Chandler Protein [Mass/Vol] 6.3 g/dL Critically low 6.4-8.2 [facility] Comment on above: Performed By: #### E RUR #### [facility] [address] [address] [address] Wallace Chandler Sodium [Moles/Vol] 139 mmol/L Normal 136-145 [facility] Comment on above: Performed By: #### E RUR #### [facility] [address] [address] [address] Wallace Chandler Urea nitrogen [Mass/Vol] 12.0 mg/dL Normal 7.0-18.0 [facility] Comment on above: Performed By: #### E RUR #### [facility] [address] [address] [address] Wallace Chandler Urea nitrogen/Creatini ne [Mass ratio] 14.3 mg/mg Normal [facility] Comment on above: Performed By: #### E RUR #### [facility] [address] [address] [address] Wallace Chandler US SINGLE QUAD RT UPPERon US SINGLE QUAD RT UPPER EXAMINATION: US SINGLE QUAD RT UPPER HISTORY: Acute pancreatitis COMPARISON: No relevant comparison available. FINDINGS: The visualized pancreas is normal in appearance. Comment the pancreatic head is not seen The liver is normal in size and contour. Increase in hepatic echotexture suggesting steatosis. Liver measures 16.1 cm in length. Normal hepatopedal flow in the main portal vein with velocity of 34 cm/s. Identified within the gallbladder fossa is a heterogeneous 5.5 x 2.7 x 3.5 cm area of mixed echogenicity, I suspect an abnormal gallbladder with a thickened wall measuring up to 12 mm. Negative sonographic Mcdonald sign. Common bile duct measures 2.6 mm. The right kidney is normal in appearance measuring 12.8 x 5.5 x 5.8 cm. IMPRESSION: No ultrasound evidence of pancreatitis in the visualized portions of the pancreas Heterogeneous appearance of the gallbladder/gallbladder fossa, I favor cholecystitis Electronically authenticated by: LY LOPEZ Date: 2021-12-03 09:01 Normal [facility] AMYLASEon 12-02-2021 Amylase [Catalytic activity/Vol] 42 U/L Normal 25-115 [facility] Comment on above: Performed By: #### L CHARLOTTE PLATA, BMP #### [facility] [address] [address] [address] Wallace Chandler CBC AUTO DIFFon 12-02-2021 BASO # 0.0 103/ul Normal 0.0-0.1 [facility] Comment on above: Performed By: #### C BCMAN #### [facility] [address] [address] [address] Wallace Chandler Basophils/100 WBC (Bld) 0.5 % Normal 0.2-2.0 [facility] Comment on above: Performed By: #### C BCMAN #### [facility] [address] [address] [address] Wallace Chandler EO # 0.1 103/ul Normal 0.0-0.7 [facility] Comment on above: Performed By: #### C BCMAN #### [facility] [address] [place] [address] Dr. Wallace Chandler Eosinophils/100 WBC (Bld) 1.4 % Normal 0.9-7.0 [facility] Comment on above: Performed By: #### C BCMAN #### [facility] [address] [address] [address] Wallace Chandler Erythrocyte distribution width (RBC) [Ratio] 12.6 % Normal 11.0-15.0 [facility] Comment on above: Performed By: #### C BCMAN #### [facility] [address] [address] [address] Wallace Chandler Hematocrit (Bld) [Volume fraction] 38.0 % Critically low 42.0-54.0 [facility] Comment on above: Performed By: #### C BCMAN #### [facility] [address] [address] [address] Wallace Chandler Hemoglobin (Bld) [Mass/Vol] 12.4 g/dL Critically low 14.0-18.0 [facility] Comment on above: Performed By: #### C BCMAN #### [facility] [address] [address] [address] Wallace Chandler IG # 0.01 10e3/ul Normal 0.00-0.03 [facility] Comment on above: Performed By: #### C VIRA #### [facility] [address] [place] [address] Dr. Wallace Chandler IG % 0.2 % Normal 0.0-0.5 [facility] Comment on above: Performed By: #### C VIRA #### [facility] [address] [address] [address] Wallace Chandler LYMPH # 1.9 103/ul Normal 1.2-3.8 [facility] Comment on above: Performed By: #### C VIRA #### [facility] [address] [place] [address] Dr. Wallace Chandler Lymphocytes/100 WBC (Bld) 30.2 % Normal 20.5-60.0 [facility] Comment on above: Performed By: #### C VIRA #### [facility] [address] [place] [address] Dr. Wallace Chandler MANUAL DIFF REQ NO Normal [facility] Comment on above: Performed By: #### C VIRA #### [facility] [address] [place] [address] Dr. Wallace Chandler MCH (RBC) [Entitic mass] 28.8 pg Normal 25.9-34.0 [facility] Comment on above: Performed By: #### C VIRA #### [facility] [address] [place] [address] Dr. Wallace Chandler MCHC (RBC) [Mass/Vol] 32.6 g/dL Normal 29.9-35.2 [facility] Comment on above: Performed By: #### C VIRA #### [facility] [address] [place] [address] Dr. Wallace Chandler MCV (RBC) [Entitic vol] 88.2 fL Normal 80.0-94.0 [facility] Comment on above: Performed By: #### C IVRA #### [facility] [address] [place] [address] Dr. Wallace Chandler MONO # 0.7 103/ul Normal 0.3-0.8 [facility] Comment on above: Performed By: #### C VIRA #### [facility] [address] [address] [address] Wallace Chandler Monocytes/100 WBC (Bld) 10.5 % Normal 1.7-12.0 [facility] Comment on above: Performed By: #### C VIRA #### [facility] [address] [address] [address] Wallace Chandler NEUT # 3.6 103/ul Normal 1.4-6.5 [facility] Comment on above: Performed By: #### C VIRA #### [facility] [address] [address] [address] Wallace Chandler Neutrophils/100 WBC (Bld) 57.2 % Normal 43.0-75.0 [facility] Comment on above: Performed By: #### C VIRA #### [facility] [address] [place] [address] Dr. Wallace Chandler Platelet mean volume (Bld) [Entitic vol] 9.5 fL Normal 9.5-13.5 [facility] Comment on above: Performed By: #### C VIRA #### [facility] [address] [place] [address] Dr. Wallace Chandler PLT 334 103/ul Normal 150-450 [facility] Comment on above: Performed By: #### C VIRA #### [facility] [address] [address] [address] Wallace Chandler RBC 4.31 106/ul Critically low 4.70-6.10 [facility] Comment on above: Performed By: #### C VIRA #### [facility] [address] [place] [address] Dr. Wallace Chandler WBC 6.4 103/ul Normal 4.0-11.0 [facility] Comment on above: Performed By: #### C VIRA #### [facility] [address] [place] [address] Dr. Wallace Chandler Covid-19 PCR ([facility])on SARS-CoV-2 (COVID-19) RNA ADRIAN+probe Ql (Unsp spec) Not detected Normal NOT DETECTED [facility] Comment on above: Result Comment: This test is not yet approved or cleared by the [place] FDA. When there are no FDA-approved or cleared tests available, and other criteria are met, FDA can make tests available under an emergency access mechanism called an Emergency Use Authorization (EUA). The EUA for this test is supported by the [place] of Health and Human Service's (HHS's) declaration that circumstances exist to justify the emergency use of in vitro diagnostics for the detection and/or diagnosis of the virus that causes COVID-19. This EUA will remain in effect (meaning this test can be used) for the duration of the COVID-19 declaration justifying emergency of IVDs, unless it is terminated or revoked by FDA (after which the test may no longer be used). When diagnostic testing is negative, the possibility of a false negative should be considered in the context of a patient's recent exposures and the presence of clinical signs and symptoms consistent with SARS-CoV-2. Performed By: #### C BCMAN #### [facility] [address] [place] [address] Dr. Wallace Chandler LIPASEon 12-02-2021 Lipase [Catalytic activity/Vol] 139.0 U/L Normal 73.0-393.0 [facility] Comment on above: Performed By: #### L IVJENA LIPA, BMP #### [facility] [address] [place] [address] Dr. Wallace Chandler PROF 14(COMP METB)on 022 Albumin [Mass/Vol] 2.2 g/dL Critically low 3.4-5.0 [facility] Comment on above: Performed By: #### L IVER LIPA, BMP #### [facility] [address] [place] [address] Dr. Wallace Chandler Albumin/Globulin [Mass ratio] 0.5 {ratio} Normal [facility] Comment on above: Performed By: #### L IVER LIPA, BMP #### [facility] [address] [place] [address] Dr. Wallace Chandler ALP [Catalytic activity/Vol] 50 U/L Normal 46-116 [facility] Comment on above: Performed By: #### L IVER, LIPA, BMP #### [facility] [address] [address] [address] Wallcae Chandler ALT [Catalytic activity/Vol] 28 U/L Normal 16-63 [facility] Comment on above: Performed By: #### L IVER, LIPA, BMP #### [facility] [address] [place] [address] Dr. Wallace Chandler Anion gap [Moles/Vol] 11.4 mmol/L Normal [facility] Comment on above: Performed By: #### L IVER LIPA, BMP #### [facility] [address] [place] [address] Dr. Wallace Chandler AST [Catalytic activity/Vol] 15 U/L Normal 15-37 [facility] Comment on above: Performed By: #### L IVER LIPA, BMP #### [facility] [address] [place] [address] Dr. Wallace Chandler Bilirubin [Mass/Vol] 0.3 mg/dL Normal 0.2-1.0 [facility] Comment on above: Performed By: #### L IVER LIPA, BMP #### [facility] [address] [place] [address] Dr. Wallace Chandler Calcium [Mass/Vol] 8.0 mg/dL Critically low 8.5-10.1 [facility] Comment on above: Performed By: #### L IVER LIPA, BMP #### [facility] [address] [place] [address] Dr. Wallace Chandler Chloride [Moles/Vol] 103 mmol/L Normal 98-107 [facility] Comment on above: Performed By: #### L IVER LIPA, BMP #### [facility] [address] [place] [address] Dr. Wallace Chandler CO2 [Moles/Vol] 28.0 mmol/L Normal 21.0-32.0 [facility] Comment on above: Performed By: #### L IVER LIPA, BMP #### [facility] [address] [address] [address] Wallace Chandler Creatinine [Mass/Vol] 0.80 mg/dL Normal 0.70-1.30 [facility] Comment on above: Performed By: #### L CHARLOTTE PLATA, BMP #### [facility] [address] [address] [address] Wallace Chandler EGFR-AF NIGERIEN >60 Normal >=60 [facility] Comment on above: Performed By: #### L CHARLOTTE PLATA, BMP #### [facility] [address] [address] [address] Wallace Chandler EGFR-NON AF NIGERIEN >60 Normal >=60 [facility] Comment on above: Performed By: #### L CHARLOTTE PLATA, BMP #### [facility] [address] [place] [address] Dr. Wallace Chandler Globulin (S) [Mass/Vol] 4.2 g/dL Normal [facility] Comment on above: Performed By: #### CHARLOTTE SALINAS, BMP #### [facility] [address] [address] [address] Wallace Chandler Glucose [Mass/Vol] 99 mg/dL Normal 74-106 [facility] Comment on above: Performed By: #### L CHARLOTTE PLATA, BMP #### [facility] [address] [address] [address] Wallace Chandler Potassium [Moles/Vol] 3.4 mmol/L Critically low 3.5-5.1 [facility] Comment on above: Performed By: #### L CHARLOTTE PLATA, BMP #### [facility] [address] [address] [address] Wallace Chandler Protein [Mass/Vol] 6.4 g/dL Normal 6.1-8.2 [facility] Comment on above: Performed By: #### L CLYDE PLATAA, BMP #### [facility] [address] [address] [address] Wallace Chandler Sodium [Moles/Vol] 139 mmol/L Normal 136-145 [facility] Comment on above: Performed By: #### L CHARLOTTE PLATA, BMP #### [facility] [address] [address] [address] Wallace Chandler Urea nitrogen [Mass/Vol] 20.0 mg/dL Critically high 7.0-18.0 [facility] Comment on above: Performed By: #### L CHARLOTTE PLATA, BMP #### [facility] [address] [place] [address] Dr. Wallace Chandler Urea nitrogen/Creatini ne [Mass ratio] 25.0 mg/mg Normal [facility] Comment on above: Performed By: #### L CHARLOTTE PLATA, BMP #### [facility] [address] [place] [address] Dr. Wallace Chandler XR CHEST 2 Von 12-02-2021 XR CHEST 2 V EXAM: XR CHEST 2 V HISTORY: SHORTNESS OF BREATH COMPARISON: 11/28/2021 TECHNIQUE: PA and lateral chest x-ray FINDINGS: LUNGS: Mild linear bibasilar opacities VASCULATURE: No increased pulmonary vasculature. PLEURA: Stable elevation the right hemidiaphragm CARDIAC: No cardiomegaly or cardiac silhouette abnormality. MEDIASTINUM: No visible mass or adenopathy. BONES: No fracture or visible bone lesion. OTHER: Negative. IMPRESSION: Linear bibasilar opacities, atelectasis favored Stable moderate elevated right hemidiaphragm Electronically authenticated by: LY LOPEZ Date: 2021-12-02 11:55 Normal [facility] AMMONIAon 12-01-2021 Ammonia (P) [Moles/Vol] 36 umol/L Critically high 11-32 [facility] Comment on above: Performed By: #### A MM #### [facility] [address] [place] [address] Dr. Wallace Chandler AMYLASEon 12-01-2021 Amylase [Catalytic activity/Vol] 37 U/L Normal 25-115 [facility] Comment on above: Performed By: #### C BCMAN #### [facility] [address] [place] [address] Dr. Wallace Chandler CBC AUTO DIFFon 12-01-2021 BASO # 0.0 103/ul Normal 0.0-0.1 [facility] Comment on above: Performed By: #### C BC #### [facility] [address] [address] [address] Wallace Chandler Basophils/100 WBC (Bld) 0.3 % Normal 0.2-2.0 [facility] Comment on above: Performed By: #### C BC #### [facility] [address] [address] [address] Wallace Chandler EO # 0.0 103/ul Normal 0.0-0.7 [facility] Comment on above: Performed By: #### C BC #### [facility] [address] [address] [address] Wallace Chandler Eosinophils/100 WBC (Bld) 0.4 % Critically low 0.9-7.0 [facility] Comment on above: Performed By: #### C BC #### [facility] [address] [place] [address] Dr. Wallace Chandler Erythrocyte distribution width (RBC) [Ratio] 12.8 % Normal 11.0-15.0 [facility] Comment on above: Performed By: #### C BC #### [facility] [address] [place] [address] Dr. Wallace Chandler Hematocrit (Bld) [Volume fraction] 38.8 % Critically low 42.0-54.0 [facility] Comment on above: Performed By: #### C BC #### [facility] [address] [place] [address] Dr. Wallace Chandler Hemoglobin (Bld) [Mass/Vol] 12.5 g/dL Critically low 14.0-18.0 [facility] Comment on above: Performed By: #### C BC #### [facility] [address] [place] [address] Dr. Wallace Chandler IG # 0.03 10e3/ul Normal 0.00-0.03 [facility] Comment on above: Performed By: #### C BC #### [facility] [address] [place] [address] Dr. Wallace Chandler IG % 0.3 % Normal 0.0-0.5 [facility] Comment on above: Performed By: #### C BC #### [facility] [address] [address] [address] Wallace Chandler LYMPH # 1.7 103/ul Normal 1.2-3.8 [facility] Comment on above: Performed By: #### C BC #### [facility] [address] [place] [address] Dr. Wallace Chandler Lymphocytes/100 WBC (Bld) 17.6 % Critically low 20.5-60.0 [facility] Comment on above: Performed By: #### C BC #### [facility] [address] [place] [address] Dr. Wallace Chandler MANUAL DIFF REQ NO Normal [facility] Comment on above: Performed By: #### C BC #### [facility] [address] [place] [address] Dr. Wallace Chandler MCH (RBC) [Entitic mass] 28.7 pg Normal 25.9-34.0 [facility] Comment on above: Performed By: #### C BC #### [facility] [address] [place] [address] Dr. Wallace Chandler MCHC (RBC) [Mass/Vol] 32.2 g/dL Normal 29.9-35.2 [facility] Comment on above: Performed By: #### C BC #### [facility] [address] [place] [address] Dr. Wallace Chandler MCV (RBC) [Entitic vol] 89.2 fL Normal 80.0-94.0 [facility] Comment on above: Performed By: #### C BC #### [facility] [address] [place] [address] Dr. Wallace Chandler MONO # 0.9 103/ul Critically high 0.3-0.8 [facility] Comment on above: Performed By: #### C BC #### [facility] [address] [place] [address] Dr. Wallace Chandler Monocytes/100 WBC (Bld) 9.2 % Normal 1.7-12.0 [facility] Comment on above: Performed By: #### C BC #### [facility] [address] [place] [address] Dr. Wallace Chandler NEUT # 6.9 103/ul Critically high 1.4-6.5 [facility] Comment on above: Performed By: #### C BC #### [facility] [address] [place] [address] Dr. Wallace Chandler Neutrophils/100 WBC (Bld) 72.2 % Normal 43.0-75.0 [facility] Comment on above: Performed By: #### C BC #### [facility] [address] [place] [address] Dr. Wallace Chandler Platelet mean volume (Bld) [Entitic vol] 9.8 fL Normal 9.5-13.5 [facility] Comment on above: Performed By: #### C BC #### [facility] [address] [place] [address] Dr. Wallace Chandler PLT 352 103/ul Normal 150-450 [facility] Comment on above: Performed By: #### C BC #### [facility] [address] [place] [address] Dr. Wallace Chandler RBC 4.35 106/ul Critically low 4.70-6.10 [facility] Comment on above: Performed By: #### C BC #### [facility] [address] [place] [address] Dr. Wallace Chandler WBC 9.6 103/ul Normal 4.0-11.0 [facility] Comment on above: Performed By: #### C BC #### [facility] [address] [place] [address] Dr. Wallace Chandler ERCPon 12-01-2021 [facility] Department of Radiology [address] [place] [id number] Patient Name: JOSEPH SCOTT : 1990 Sex: M Age: Race: NA Pt. Location: OUTP Patient Status: O Ordered Date: 12/01/2021 4:30:00 PM Completed Date: 12/01/2021 07:34 PM Requesting Provider: JULIAN RIVERA Attending Provider: Report Copy To: Signs & Symptoms: Abdomen Pain Generalized History: See Comments Comments: Check Stent Position Exam: ERCP ERCP 12/01/2021 7:34 PM CLINICAL INDICATIONS: Abdomen Pain Generalized TECH COMMENTS:Dr. Zamorano used 1 minute and 58 seconds of fluoro time for an intra-op ERCP. 131.25 mGy 8 Images COMPARISON: None. FINDINGS AND IMPRESSION: 8 images are submitted for review from ERCP performed by the GI lab. Endoscope is passed in an antegrade fashion, and the tip of the endoscope lies in the second portion of the duodenum. The common bile duct was cannulated and contrast injected in a retrograde direction, opacifying the biliary tree. Metallic biliary stent placed. Fluoroscopy Time: 1 minute 58 seconds Please see the GI procedure note for further details. Electronically signed: Shelton Garcia. Transcribed by: [email or web address], User Resident: Electronically Signed by: SHELTON GARCIA @ 12/01/2021 08:04 PM Normal [facility] Comment on above: Order Comment: Check Stent Position Endoscopy Reporton Endoscopy Report MR#: [id number] [facility] Pt. Name: Joseph Scott Surgery Date: 12/01/2021 Room #: 0C Date of : 1990 PROCEDURE NOTE ATTENDING: Jacob Zamorano M.D. NUT PROCESSING SUPERVISOR: Julian Rivera MD PROCEDURE: Endoscopic retrograde cholangiopancreatography with metallic stent placement. INDICATION: This is a 31-year-old male who presented with right upper quadrant pain to [facility] and ultrasound showed acute cholecystitis. The patient then underwent laparoscopic cholecystectomy, needing conversion to open cholecystectomy due to significant edema, adhesions, and inflammation. The cholecystectomy was subtotal. Postoperatively, the patient was noted to have a bile leak and ERCP was attempted at the local facility, but was unsuccessful due to inability to advance the side-viewing duodenoscope beyond stomach due to J-shaped stomach. A repeat ERCP was indicated for ongoing bile leak. ANESTHESIA: General anesthesia. CONSENT: Informed consent was obtained after explaining risks including bleeding, perforation, reaction to medication, aspiration, pancreatitis, benefits, and alternatives with the patient. The patient verbalized understanding and agreed to proceed with procedure. DESCRIPTION OF PROCEDURE: The patient was placed in semiprone position. Oxygen and cardiac monitoring equipment were attached. The patient's vital signs were continuously monitored throughout the procedure. After appropriate sedation was achieved, an Olympus side-viewing duodenoscope was advanced under direct vision from the patient's oral cavity to the level of major papilla with some difficulty due to looping and the duodenoscope subsequently was advanced to the level of major papilla. The major papilla appeared unremarkable and RX 44 sphincterotome loaded with 0.035 inch guidewire was then advanced to the level of major papilla and CBD was selectively cannulated using guidewire only technique. The sphincterotome was then advanced and CBD was deeply cannulated. Contrast was injected. Flow was adequate. I personally interpreted the images and the initial cholangiogram showed high-grade cystic duct stump leak. The sphincterotome was then withdrawn to the level of major papilla and biliary sphincterotomy was performed. The sphincterotome was then removed and a 10 mm X 60 mm fully covered self-expandable metallic stent was then advanced over the guidewire and deployed into the CBD bridging the cystic duct stump. Good biliary drainage was achieved. The endoscope was then withdrawn out of the patient's oral cavity. There were no immediate complications. The patient tolerated the procedure well. ERCP FINDINGS: 1. J-shaped stomach. 2. The cholangiogram showed a high-grade cystic duct stump leak. Biliary sphincterotomy was performed. The cystic duct appeared to have a low takeoff in distal CBD. A 10 mm X 60 mm fully covered self-expandable metallic stent was deployed into the CBD bridging the cystic duct stump and the major papilla. Good biliary drainage was achieved. RECOMMENDATIONS: 1. N.p.o. today. 2. Hold subcu heparin if any. 3. Monitor LFTs. 4. Repeat ERCP for stent removal and final clearance of CBD in 4 weeks. Electronically Signed by: Jacob Zamorano M.D. 12/09/2021 05:54 P Jacob Zamorano M.D. I was present for the entire procedure from insertion of the scope until it was withdrawn. Date Dict: 12/01/2021/07:42 P/Julian Rivera MD Date Trans: 12/01/2021 08:36 P/juano [id number] cc: Selina Gamino M.D[address] [id number] Jacob Zamorano M.D. [address] [facility]. [address] [facility] [address] Normal [facility] GENTAMICIN RANDOMon 12-02-19 22 GENTAMICIN 1.2 ug/mL Normal [facility] Comment on above: Performed By: #### C BC #### [facility] [address] [place] [address] Dr. Wallace Chandler LIPASEon 12-01-2021 Lipase [Catalytic activity/Vol] 65.0 U/L Critically low 73.0-393.0 [facility] Comment on above: Performed By: #### C BCMAN #### [facility] [address] [address] [address] Wallace Chandler POC GLUCOSE LABon 12-01-2021 Glucose [Mass/Vol] 73 mg/dL Normal 70-100 [facility] Comment on above: Performed By: #### 8 [id number] #### [facility] [address] [place] [address], [facility] PROF 14(COMP METB)on 022 Albumin [Mass/Vol] 2.3 g/dL Critically low 3.4-5.0 [facility] Comment on above: Performed By: #### C VIRA #### [facility] [address] [place] [address] Dr. Wallace Chandler Albumin/Globulin [Mass ratio] 0.5 {ratio} Normal [facility] Comment on above: Performed By: #### C BCJESSUITA #### [facility] [address] [address] [address] Wallace Chandler ALP [Catalytic activity/Vol] 56 U/L Normal 46-116 [facility] Comment on above: Performed By: #### C BCJESUSITA #### [facility] [address] [place] [address] Dr. Wallace Chandler ALT [Catalytic activity/Vol] 28 U/L Normal 16-63 [facility] Comment on above: Performed By: #### C VIRA #### [facility] [address] [place] [address] Dr. Wallace Chandler Anion gap [Moles/Vol] 9.8 mmol/L Normal [facility] Comment on above: Performed By: #### C BCJESUSITA #### [facility] [address] [place] [address] Dr. Wallace Chandler AST [Catalytic activity/Vol] 14 U/L Critically low 15-37 [facility] Comment on above: Performed By: #### C BCJESUSITA #### [facility] [address] [place] [address] Dr. Wallace Chandler Bilirubin [Mass/Vol] 0.3 mg/dL Normal 0.2-1.0 [facility] Comment on above: Performed By: #### C BCJESUSITA #### [facility] [address] [address] [address] Wallace Chandler Calcium [Mass/Vol] 8.1 mg/dL Critically low 8.5-10.1 [facility] Comment on above: Performed By: #### C VIRA #### [facility] [address] [address] [address] Wallace Chandler Chloride [Moles/Vol] 105 mmol/L Normal 98-107 [facility] Comment on above: Performed By: #### C BCMAN #### [facility] [address] [address] [address] Wallace Chandler CO2 [Moles/Vol] 25.6 mmol/L Normal 21.0-32.0 [facility] Comment on above: Performed By: #### C BCMAN #### [facility] [address] [address] [address] Wallace Chandler Creatinine [Mass/Vol] 1.03 mg/dL Normal 0.70-1.30 [facility] Comment on above: Performed By: #### C BCMAN #### [facility] [address] [address] [address] Wallace Chandler EGFR-AF NIGERIEN >60 Normal >=60 [facility] Comment on above: Performed By: #### C BCMAN #### [facility] [address] [place] [address] Dr. Wallace Chandler EGFR-NON AF NIGERIEN >60 Normal >=60 [facility] Comment on above: Performed By: #### C BCMAN #### [facility] [address] [address] [address] Wallace Chandler Globulin (S) [Mass/Vol] 4.2 g/dL Normal [facility] Comment on above: Performed By: #### C BCMAN #### [facility] [address] [place] [address] Dr. Wallace Chandler Glucose [Mass/Vol] 97 mg/dL Normal 74-106 [facility] Comment on above: Performed By: #### C BCMAN #### [facility] [address] [address] [address] Wallace Chandler Potassium [Moles/Vol] 3.4 mmol/L Critically low 3.5-5.1 [facility] Comment on above: Performed By: #### C BCMAN #### [facility] [address] [place] [address] Dr. Wallace Chandler Protein [Mass/Vol] 6.5 g/dL Normal 6.1-8.2 [facility] Comment on above: Performed By: #### C BCMAN #### [facility] [address] [address] [address] Wallace Chandler Sodium [Moles/Vol] 137 mmol/L Normal 136-145 [facility] Comment on above: Performed By: #### C KENDALLMAN #### [facility] [address] [address] [address] Wallace Chandler Urea nitrogen [Mass/Vol] 25.0 mg/dL Critically high 7.0-18.0 [facility] Comment on above: Performed By: #### C KENDALLMAN #### [facility] [address] [address] [address] Wallace Chandler Urea nitrogen/Creatini ne [Mass ratio] 24.3 mg/mg Normal [facility] Comment on above: Performed By: #### C KENDALLMAN #### [facility] [address] [place] [address] Dr. Wallace Chandler AMMONIAon 11-30-2021 Ammonia (P) [Moles/Vol] 12 umol/L Normal 11-32 [facility] Comment on above: Performed By: #### L IVER LIPA, BMP #### [facility] [address] [address] [address] Wallace Chandler AMYLASEon 11-30-2021 Amylase [Catalytic activity/Vol] 16 U/L Critically low 25-115 [facility] Comment on above: Performed By: #### L IVER, LIPA, BMP #### [facility] [address] [place] [address] Dr. Wallace Chandler CBC W MANUAL DIFFon 12-01-19 22 ATYPICAL LYMPH # Normal [facility] Comment on above: Performed By: #### L IVER LIPA, BMP #### [facility] [address] [place] [address] Dr. Wallace Chandler ATYPICAL LYMPH % Normal [facility] Comment on above: Performed By: #### L IVER, LIPA, BMP #### [facility] [address] [place] [address] Dr. Wallace Chandler BAND # 0.2 103/ul Normal 0.0-0.3 [facility] Comment on above: Performed By: #### L IVER, LIPA, BMP #### [facility] [address] [address] [address] Wallace Chandler BAND % 1 % Normal 0-5 [facility] Comment on above: Performed By: #### L IVER, LIPA, BMP #### [facility] [address] [place] [address] Dr. Wallace Chandler BASOM # 0.00 103/ul Normal 0.00-0.10 [facility] Comment on above: Performed By: #### L IVER, LIPA, BMP #### [facility] [address] [address] [address] Wallace Chandler BASOM % 0.0 % Critically low 0.2-2.0 [facility] Comment on above: Performed By: #### L IVER, LIPA, BMP #### [facility] [address] [place] [address] Dr. Wallace Chandler BLAST # Normal [facility] Comment on above: Performed By: #### L IVER, LIPA, BMP #### [facility] [address] [place] [address] Dr. Wallace Chandler BLAST % Normal [facility] Comment on above: Performed By: #### L IVER, LIPA, BMP #### [facility] [address] [place] [address] Dr. Wallace Chandler CORRECTED WBC Normal 4.0-11.0 [facility] Comment on above: Performed By: #### L IVER, LIPA, BMP #### [facility] [address] [place] [address] Dr. Wallace Chandler EOS # 0.00 103/ul Normal 0.00-0.70 [facility] Comment on above: Performed By: #### L IVER, LIPA, BMP #### [facility] [address] [place] [address] Dr. Wallace Chandler EOS% 0.0 % Critically low 0.9-7.0 [facility] Comment on above: Performed By: #### L IVER, LIPA, BMP #### [facility] [address] [address] [address] Wallace Chandler HCT 43.6 % Normal 42.0-54.0 [facility] Comment on above: Performed By: #### L IVER, LIPA, BMP #### [facility] [address] [address] [address] Wallace Chandler HGB 13.9 g/dl Critically low 14.0-18.0 [facility] Comment on above: Performed By: #### L IVER, LIPA, BMP #### [facility] [address] [address] [address] Wallace Chandler LYMPHM # 1.56 103/ul Normal 1.20-3.80 [facility] Comment on above: Performed By: #### L IVER, LIPA, BMP #### [facility] [address] [place] [address] Dr. Wallace Chandler LYMPHM% 8.0 % Critically low 20.5-60.0 [facility] Comment on above: Performed By: #### L IVER, LIPA, BMP #### [facility] [address] [address] [address] Wallace Chandler MCH 28.7 pg Normal 25.9-34.0 [facility] Comment on above: Performed By: #### L IVER, LIPA, BMP #### [facility] [address] [place] [address] Dr. Wallace Chandler MCHC 31.9 g/dl Normal 29.9-35.2 [facility] Comment on above: Performed By: #### L IVER, LIPA, BMP #### [facility] [address] [address] [address] Wallace Chandler MCV 90.1 fL Normal 80.0-94.0 [facility] Comment on above: Performed By: #### L IVER, LIPA, BMP #### [facility] [address] [address] [address] Wallace Chandler METAMYELOCYTE # Normal [facility] Comment on above: Performed By: #### L IVER, LIPA, BMP #### [facility] [address] [address] [address] Wallace Chandler METAMYELOCYTE % Normal [facility] Comment on above: Performed By: #### L IVER, LIPA, BMP #### [facility] [address] [address] [address] Wallace Chandler MONOM# 1.36 103/ul Critically high 0.30-0.80 [facility] Comment on above: Performed By: #### L IVER, LIPA, BMP #### [facility] [address] [address] [address] Wallace Chandler MONOM% 7.0 % Normal 1.7-12.0 [facility] Comment on above: Performed By: #### L IVER, LIPA, BMP #### [facility] [address] [place] [address] Dr. Wallace Chandler MPV 9.9 fL Normal 9.5-13.5 [facility] Comment on above: Performed By: #### L IVER, LIPA, BMP #### [facility] [address] [place] [address] Dr. Wallace Chandler MYELOCYTE # Normal [facility] Comment on above: Performed By: #### L IVER, LIPA, BMP #### [facility] [address] [place] [address] Dr. Wallace Chandler MYELOCYTE % Normal [facility] Comment on above: Performed By: #### L IVER, LIPA, BMP #### [facility] [address] [place] [address] Dr. Wallace Chandler NRBC Normal [facility] Comment on above: Performed By: #### L IVER, LIPA, BMP #### [facility] [address] [place] [address] Dr. Wallace Chandler PLT 341 103/ul Normal 150-450 [facility] Comment on above: Performed By: #### L IVER, LIPA, BMP #### [facility] [address] [address] [address] Wallace Chandler RBC 4.84 106/ul Normal 4.70-6.10 [facility] Comment on above: Performed By: #### L IVJENA LIPA, BMP #### [facility] [address] [address] [address] Wallace Chandler RDW 12.9 % Normal 11.0-15.0 [facility] Comment on above: Performed By: #### L IVJENA LIPA, BMP #### [facility] [address] [address] [address] Wallace Chandler SEG # 16.38 103/ul Critically high 1.40-6.50 [facility] Comment on above: Performed By: #### L IVJENA LIPA, BMP #### [facility] [address] [address] [address] Wallace Chandler SEG % 84.0 % Critically high 43.0-75.0 [facility] Comment on above: Performed By: #### L IVJENA LIPA, BMP #### [facility] [address] [address] [address] Wallace Chandler WBC 19.5 103/ul Critically high 4.0-11.0 [facility] Comment on above: Performed By: #### L CLYDE PLATAA, BMP #### [facility] [address] [place] [address] Dr. Wallace Chandler [place] ERCPon 11-30-2021 [place] ERCP [facility] [place] [address] Fluoroscopy Report Signed Patient: Joseph Scott MR#: [id number] 1 : 1990 Acct:[id number] Age/Sex: 31 / M ADM Date: 11/30/21 Loc: Room: Type: [facility] Attending Dr: Devon Saavedra MD Ordering Provider: Devon Saavedra MD Date of Service: 11/30/21 FL/FL ERCP: ATTEMPTED ERCP Copies to: Devon Saavedra MD [place] ERCP 11/30/2021 2:53 PM SIGNS AND SYMPTOMS: ATTEMPTED ERCP PROTOCOL: Attempted ERCP/unsuccessful COMPARISON: None FINDINGS: A single fluoroscopic image of the right upper quadrant was obtained demonstrating an endoscope. Number of images: 1 Fluoroscopic time: 4 minutes 12 seconds. FL/FL ERCP IMPRESSION: A single fluoroscopic image of the right upper quadrant was obtained demonstrating an endoscope. Impression dictated by: Neo Rojas M.D.11/30/2021 3:04 PM Dictation Location: [place] [address] Transcribed By: [facility] 11/30/21 1504 Dictated By: Neo Rojas II, MD 11/30/21 1503 Signed By: 11/30/21 1504 Normal [facility] GENTAMICIN TROUGHon 12-01-19 GENT TROUGH 1.0 ug/mL Normal <=2.0 [facility] Comment on above: Performed By: #### G ENT #### [facility] [address] [place] [address] Dr. Wallace Chandler H PYLORI ANTIBODY IGGon H. PYLORI IGG ABS 4.00 Index Value Critically high 0.00-0. 79 [facility] Comment on above: Result Comment: Nega tive <0.80 Equivocal 0.80 - 0.89 Positive >0.89 Performed By: #### E RUR #### [facility] [address] [place] [address] Dr. Wallace Chandler LIPASEon 11-30-2021 Lipase [Catalytic activity/Vol] 11.0 U/L Critically low 73.0-393.0 [facility] Comment on above: Performed By: #### L CHARLOTTE PLATA BMP #### [facility] [address] [place] [address] Dr. Wallace Chandler PROF 14(COMP METB)on 022 Albumin [Mass/Vol] 2.5 g/dL Critically low 3.4-5.0 [facility] Comment on above: Performed By: #### L CHARLOTTE PLATA BMP #### [facility] [address] [place] [address] Dr. Wallace Chandler Albumin/Globulin [Mass ratio] 0.6 {ratio} Normal [facility] Comment on above: Performed By: #### L IVER, LIPA, BMP #### [facility] [address] [address] [address] Wallace Chandler ALP [Catalytic activity/Vol] 64 U/L Normal 46-116 [facility] Comment on above: Performed By: #### L IVER, LIPA, BMP #### [facility] [address] [place] [address] Dr. Wallace Chandler ALT [Catalytic activity/Vol] 31 U/L Normal 16-63 [facility] Comment on above: Performed By: #### L IVER, LIPA, BMP #### [facility] [address] [place] [address] Dr. Wallace Chandler Anion gap [Moles/Vol] 9.4 mmol/L Normal [facility] Comment on above: Performed By: #### L IVER, LIPA, BMP #### [facility] [address] [place] [address] Dr. Wallace Chandler AST [Catalytic activity/Vol] 20 U/L Normal 15-37 [facility] Comment on above: Performed By: #### L IVER, LIPA, BMP #### [facility] [address] [place] [address] Dr. Wallace Chandler Bilirubin [Mass/Vol] 0.5 mg/dL Normal 0.2-1.0 [facility] Comment on above: Performed By: #### L IVER, LIPA, BMP #### [facility] [address] [address] [address] Wallace Chandler Calcium [Mass/Vol] 8.1 mg/dL Critically low 8.5-10.1 [facility] Comment on above: Performed By: #### L IVER, LIPA, BMP #### [facility] [address] [place] [address] Dr. Wallace Chandler Chloride [Moles/Vol] 101 mmol/L Normal 98-107 [facility] Comment on above: Performed By: #### L IVER, LIPA, BMP #### [facility] [address] [address] [address] Wallace Chandler CO2 [Moles/Vol] 29.1 mmol/L Normal 21.0-32.0 [facility] Comment on above: Performed By: #### L CHARLOTTE PLATA, BMP #### [facility] [address] [address] [address] Wallace Chandler Creatinine [Mass/Vol] 0.98 mg/dL Normal 0.70-1.30 [facility] Comment on above: Performed By: #### L IVJENA LIPA, BMP #### [facility] [address] [address] [address] Wallace Chandler EGFR-AF NIGERIEN >60 Normal >=60 [facility] Comment on above: Performed By: #### L CLYDE PLATAA, BMP #### [facility] [address] [address] [address] Wallace Chandler EGFR-NON AF NIGERIEN >60 Normal >=60 [facility] Comment on above: Performed By: #### L CLYDE PLATAA, BMP #### [facility] [address] [address] [address] Wallace Chandler Globulin (S) [Mass/Vol] 4.4 g/dL Normal [facility] Comment on above: Performed By: #### CHARLOTTE SALINAS, BMP #### [facility] [address] [address] [address] Wallace Chandler Glucose [Mass/Vol] 127 mg/dL Critically high 74-106 [facility] Comment on above: Performed By: #### L CLYDE PLATAA, BMP #### [facility] [address] [address] [address] Wallace Chandler Potassium [Moles/Vol] 4.5 mmol/L Normal 3.5-5.1 [facility] Comment on above: Performed By: #### L CLYDE PLATAA, BMP #### [facility] [address] [address] [address] Wallace Chandler Protein [Mass/Vol] 6.9 g/dL Normal 6.1-8.2 [facility] Comment on above: Performed By: #### L CLYDE PLATAA, BMP #### [facility] [address] [place] [address] Dr. Wallace Chandler Sodium [Moles/Vol] 135 mmol/L Critically low 136-145 [facility] Comment on above: Performed By: #### L CHARLOTTE PLATA, BMP #### [facility] [address] [place] [address] Dr. Wallace Chandler Urea nitrogen [Mass/Vol] 18.0 mg/dL Normal 7.0-18.0 [facility] Comment on above: Performed By: #### CHARLOTTE SALINAS, BMP #### [facility] [address] [place] [address] Dr. Wallace Chandler Urea nitrogen/Creatini ne [Mass ratio] 18.4 mg/mg Normal [facility] Comment on above: Performed By: #### CHARLOTTE SALINAS BMP #### [facility] [address] [place] [address] Dr. Wallace Chandler AMMONIAon 11-29-2021 Ammonia (P) [Moles/Vol] 79 umol/L Critically high 11-32 [facility] Comment on above: Performed By: #### C VIRA #### [facility] [address] [place] [address] Dr. Wallace Chandler AMYLASEon 11-29-2021 Amylase [Catalytic activity/Vol] 17 U/L Critically low 25-115 [facility] Comment on above: Performed By: #### CHARLOTTE SALINAS BMP #### [facility] [address] [place] [address] Dr. Wallace Chandler CBC W MANUAL DIFFon 11-30-19 22 ATYPICAL LYMPH # Normal [facility] Comment on above: Performed By: #### C BCJESUSITA #### [facility] [address] [place] [address] Dr. Wallace Chandler ATYPICAL LYMPH % Normal [facility] Comment on above: Performed By: #### C BCMAN #### [facility] [address] [place] [address] Dr. Wallace Chandler BAND # Normal 0.0-0.3 [facility] Comment on above: Performed By: #### C VIRA #### [facility] [address] [place] [address] Dr. Wallace Chandler BAND % Normal 0-5 [facility] Comment on above: Performed By: #### C VIRA #### [facility] [address] [place] [address] Dr. Wallace Chandler BASOM # 0.27 103/ul Critically high 0.00-0.10 [facility] Comment on above: Performed By: #### C VIRA #### [facility] [address] [place] [address] Dr. Wallace Chandler BASOM % 1.0 % Normal 0.2-2.0 [facility] Comment on above: Performed By: #### C VIRA #### [facility] [address] [place] [address] Dr. Wallace Chandler BLAST # Normal [facility] Comment on above: Performed By: #### C VIRA #### [facility] [address] [place] [address] Dr. Wallace Chandler BLAST % Normal [facility] Comment on above: Performed By: #### C VIRA #### [facility] [address] [place] [address] Dr. Wallace Chandler CORRECTED WBC Normal 4.0-11.0 [facility] Comment on above: Performed By: #### C VIRA #### [facility] [address] [place] [address] Dr. Wallace Chandler EOS # 0.00 103/ul Normal 0.00-0.70 [facility] Comment on above: Performed By: #### C VIRA #### [facility] [address] [place] [address] Dr. Wallace Chandler EOS% 0.0 % Critically low 0.9-7.0 [facility] Comment on above: Performed By: #### C VIRA #### [facility] [address] [place] [address] Dr. Wallace Chandler HCT 47.3 % Normal 42.0-54.0 [facility] Comment on above: Performed By: #### C VIRA #### [facility] [address] [address] [address] Wallace Chandler HGB 15.7 g/dl Normal 14.0-18.0 [facility] Comment on above: Performed By: #### C VIRA #### [facility] [address] [address] [address] Wallace Chandler LYMPHM # 1.90 103/ul Normal 1.20-3.80 [facility] Comment on above: Performed By: #### C VIRA #### [facility] [address] [address] [address] Wallace Chandler LYMPHM% 7.0 % Critically low 20.5-60.0 [facility] Comment on above: Performed By: #### C VIRA #### [facility] [address] [place] [address] Dr. Wallace Chandler MCH 29.1 pg Normal 25.9-34.0 [facility] Comment on above: Performed By: #### Molly CONSTANTINO #### [facility] [address] [place] [address] Dr. Wallace Chandler MCHC 33.2 g/dl Normal 29.9-35.2 [facility] Comment on above: Performed By: #### C VIRA #### [facility] [address] [place] [address] Dr. Wallace Chandler MCV 87.8 fL Normal 80.0-94.0 [facility] Comment on above: Performed By: #### Molly CONSTANTINO #### [facility] [address] [place] [address] Dr. Wallace Chandler METAMYELOCYTE # Normal [facility] Comment on above: Performed By: #### C VIRA #### [facility] [address] [place] [address] Dr. Wallace Chandler METAMYELOCYTE % Normal [facility] Comment on above: Performed By: #### Molly CONSTANTINO #### [facility] [address] [place] [address] Dr. Wallace Chandler MONOM# 2.45 103/ul Critically high 0.30-0.80 [facility] Comment on above: Performed By: #### C VIRA #### [facility] [address] [address] [address] Wallace Chandler MONOM% 9.0 % Normal 1.7-12.0 [facility] Comment on above: Performed By: #### C VIRA #### [facility] [address] [place] [address] Dr. Wallace Chandler MPV 10.2 fL Normal 9.5-13.5 [facility] Comment on above: Performed By: #### C VIRA #### [facility] [address] [place] [address] Dr. Wallace Chandler MYELOCYTE # Normal [facility] Comment on above: Performed By: #### C VIRA #### [facility] [address] [place] [address] Dr. Wallace Chandler MYELOCYTE % Normal [facility] Comment on above: Performed By: #### C VIRA #### [facility] [address] [place] [address] Dr. Wallace Chandler NRBC Normal [facility] Comment on above: Performed By: #### C VIRA #### [facility] [address] [place] [address] Dr. Wallace Chandler PLT 326 103/ul Normal 150-450 [facility] Comment on above: Performed By: #### C VIRA #### [facility] [address] [place] [address] Dr. Wallace Chandler RBC 5.39 106/ul Normal 4.70-6.10 [facility] Comment on above: Performed By: #### C VIRA #### [facility] [address] [place] [address] Dr. Wallace Chandler RDW 12.9 % Normal 11.0-15.0 [facility] Comment on above: Performed By: #### C VIRA #### [facility] [address] [place] [address] Dr. Wallace Chandler SEG # 22.58 103/ul Critically high 1.40-6.50 [facility] Comment on above: Performed By: #### C BCMAN #### [facility] [address] [address] [address] Wallace Chandler SEG % 83.0 % Critically high 43.0-75.0 [facility] Comment on above: Performed By: #### C BCMAN #### [facility] [address] [address] [address] Wallace Chandler WBC 27.2 103/ul Critically high 4.0-11.0 [facility] Comment on above: Performed By: #### C KENDALLMAN #### [facility] [address] [address] [address] Wallace Chandler LIPASEon 11-29-2021 Lipase [Catalytic activity/Vol] 17.0 U/L Critically low 73.0-393.0 [facility] Comment on above: Performed By: #### L CHARLOTTE PLATA BMP #### [facility] [address] [place] [address] Dr. Wallace Chandler POINT OF CARE GLUCOSEon Glucose [Mass/Vol] 127 mg/dL Critically high 74-106 [facility] Comment on above: Performed By: #### P OCGLUC #### [facility] [address] [place] [address] Dr. Wallace Chandler PROF 14(COMP METB)on 022 Albumin [Mass/Vol] 3.0 g/dL Critically low 3.4-5.0 [facility] Comment on above: Performed By: #### L CHARLOTTE PLATA, BMP #### [facility] [address] [place] [address] Dr. Wallace Chandler Albumin/Globulin [Mass ratio] 0.7 {ratio} Normal [facility] Comment on above: Performed By: #### L CHARLOTTE PLATA, BMP #### [facility] [address] [place] [address] Dr. Wallace Chandler ALP [Catalytic activity/Vol] 67 U/L Normal 46-116 [facility] Comment on above: Performed By: #### L CHARLOTTE PLATA, BMP #### [facility] [address] [address] [address] Wallace Chandler ALT [Catalytic activity/Vol] 31 U/L Normal 16-63 [facility] Comment on above: Performed By: #### L IVER LIPA, BMP #### [facility] [address] [place] [address] Dr. Wallace Chandler Anion gap [Moles/Vol] 13.4 mmol/L Normal [facility] Comment on above: Performed By: #### L IVER LIPA, BMP #### [facility] [address] [place] [address] Dr. Wallace Chandler AST [Catalytic activity/Vol] 13 U/L Critically low 15-37 [facility] Comment on above: Performed By: #### L IVER LIPA, BMP #### [facility] [address] [place] [address] Dr. Wallace Chandler Bilirubin [Mass/Vol] 1.2 mg/dL Critically high 0.2-1.0 [facility] Comment on above: Performed By: #### L IVER, LIPA, BMP #### [facility] [address] [place] [address] Dr. Wallace Chandler Calcium [Mass/Vol] 8.4 mg/dL Critically low 8.5-10.1 [facility] Comment on above: Performed By: #### L IVER LIPA, BMP #### [facility] [address] [place] [address] Dr. Wallace Chandler Chloride [Moles/Vol] 100 mmol/L Normal 98-107 [facility] Comment on above: Performed By: #### L IVER, LIPA, BMP #### [facility] [address] [place] [address] Dr. Wallace Chandler CO2 [Moles/Vol] 24.1 mmol/L Normal 21.0-32.0 [facility] Comment on above: Performed By: #### L IVER, LIPA, BMP #### [facility] [address] [place] [address] Dr. Wallace Chandler Creatinine [Mass/Vol] 0.72 mg/dL Normal 0.70-1.30 [facility] Comment on above: Performed By: #### L IVER, LIPA, BMP #### [facility] [address] [address] [address] Wallace Chandler EGFR-AF NIGERIEN >60 Normal >=60 [facility] Comment on above: Performed By: #### L IVER, LIPA, BMP #### [facility] [address] [address] [address] Wallace Chandler EGFR-NON AF NIGERIEN >60 Normal >=60 [facility] Comment on above: Performed By: #### L IVER, LIPA, BMP #### [facility] [address] [place] [address] Dr. Wallace Chandler Globulin (S) [Mass/Vol] 4.2 g/dL Normal [facility] Comment on above: Performed By: #### L IVER, LIPA, BMP #### [facility] [address] [place] [address] Dr. Wallace Chandler Glucose [Mass/Vol] 141 mg/dL Critically high 74-106 [facility] Comment on above: Performed By: #### L IVER, LIPA, BMP #### [facility] [address] [place] [address] Dr. Wallace Chandler Potassium [Moles/Vol] 3.5 mmol/L Normal 3.5-5.1 [facility] Comment on above: Performed By: #### L IVER, LIPA, BMP #### [facility] [address] [place] [address] Dr. Wallace Chandler Protein [Mass/Vol] 7.2 g/dL Normal 6.1-8.2 [facility] Comment on above: Performed By: #### L IVER, LIPA, BMP #### [facility] [address] [place] [address] Dr. Wallace Chandler Sodium [Moles/Vol] 134 mmol/L Critically low 136-145 [facility] Comment on above: Performed By: #### L IVER, LIPA, BMP #### [facility] [address] [place] [address] Dr. Wallace Chandler Urea nitrogen [Mass/Vol] 11.0 mg/dL Normal 7.0-18.0 [facility] Comment on above: Performed By: #### L CHARLOTTE PLATA BMP #### [facility] [address] [address] [address] Wallace Chandler Urea nitrogen/Creatini ne [Mass ratio] 15.3 mg/mg Normal [facility] Comment on above: Performed By: #### CHARLOTTE SALINAS BMP #### [facility] [address] [id number] Wallace Chandler US SINGLE QUAD RT UPPERon US SINGLE QUAD RT UPPER EXAMINATION: US SINGLE QUAD RT UPPER HISTORY: Right upper quadrant pain ; abnormal CT scan COMPARISON: No relevant comparison available. TECHNIQUE: Transabdominal evaluation of the right upper quadrant. FINDINGS: LIVER: Normal size and echotexture. Color Doppler demonstrates patent hepatic veins. PORTAL VEIN: Duplex Doppler demonstrates hepatopetal flow pattern with flow velocity averaging 46 cm/s. GALLBLADDER: Abnormal wall thickening up to 9 mm. Filled with echogenic debris/sludge. Positive Mcdonald's sign. BILIARY: No abnormal dilation or stones. Common bile duct diameter is within normal limits. PANCREASE: No visible mass, abnormal atrophy, or duct dilation. KIDNEY: Small nonobstructing stone within inferior pole. Size: 13.0 x 6.7 x 8.2 cm IMPRESSION: 1. Acute cholecystitis. 2. Nonobstructing right nephrolithiasis. 3. Slightly limited examination due to patient body habitus and difficulty with breath-holding. Electronically authenticated by: SIDNEY HERNANDEZ Date: 2021-11-29 08:39 Normal [facility] AMYLASEon 11-28-2021 Amylase [Catalytic activity/Vol] 27 U/L Normal 25-115 [facility] Comment on above: Performed By: #### L CHARLOTTE PLATA BMP #### [facility] [address] [place] [address] Dr. Wallace Chandler CBC W MANUAL DIFFon 11-29-19 22 ATYPICAL LYMPH # Normal [facility] Comment on above: Performed By: #### Molly CONSTANTINO #### [facility] [address] [place] [address] Dr. Wallace Chandler ATYPICAL LYMPH % Normal [facility] Comment on above: Performed By: #### C BCMAN #### [facility] [address] [place] [address] Dr. Wallace Chandler BAND # Normal 0.0-0.3 [facility] Comment on above: Performed By: #### C BCMAN #### [facility] [address] [place] [address] Dr. Wallace Chandler BAND % Normal 0-5 [facility] Comment on above: Performed By: #### C BCMAN #### [facility] [address] [place] [address] Dr. Wallace Chandler BASOM # 0.00 103/ul Normal 0.00-0.10 [facility] Comment on above: Performed By: #### C BCMAN #### [facility] [address] [place] [address] Dr. Wallace Chandler BASOM % 0.0 % Critically low 0.2-2.0 [facility] Comment on above: Performed By: #### C BCMAN #### [facility] [address] [place] [address] Dr. Wallace Chandler BLAST # Normal [facility] Comment on above: Performed By: #### C BCMAN #### [facility] [address] [place] [address] Dr. Wallace Chandler BLAST % Normal [facility] Comment on above: Performed By: #### C BCMAN #### [facility] [address] [place] [address] Dr. Wallace Chandler CORRECTED WBC Normal 4.0-11.0 [facility] Comment on above: Performed By: #### C BCMAN #### [facility] [address] [place] [address] Dr. Wallace Chandler EOS # 0.00 103/ul Normal 0.00-0.70 [facility] Comment on above: Performed By: #### C BCMAN #### [facility] [address] [place] [address] Dr. Wallace Chandler EOS% 0.0 % Critically low 0.9-7.0 [facility] Comment on above: Performed By: #### C BCJESUSITA #### [facility] [address] [address] [address] Wallace Chandler HCT 48.5 % Normal 42.0-54.0 [facility] Comment on above: Performed By: #### C VIRA #### [facility] [address] [address] [address] Wallace Chandler HGB 16.1 g/dl Normal 14.0-18.0 [facility] Comment on above: Performed By: #### C VIRA #### [facility] [address] [address] [address] Wallace Chandler LYMPHM # 2.06 103/ul Normal 1.20-3.80 [facility] Comment on above: Performed By: #### C VIRA #### [facility] [address] [place] [address] Dr. Wallace Chandler LYMPHM% 10.0 % Critically low 20.5-60.0 [facility] Comment on above: Performed By: #### C VIRA #### [facility] [address] [address] [address] Wallace Chandler MCH 28.6 pg Normal 25.9-34.0 [facility] Comment on above: Performed By: #### C VIRA #### [facility] [address] [place] [address] Dr. Wallace Chandler MCHC 33.2 g/dl Normal 29.9-35.2 [facility] Comment on above: Performed By: #### C BCJESUSITA #### [facility] [address] [address] [address] Wallace Chandler MCV 86.3 fL Normal 80.0-94.0 [facility] Comment on above: Performed By: #### C VIRA #### [facility] [address] [place] [address] Dr. Wallace Chandler METAMYELOCYTE # Normal [facility] Comment on above: Performed By: #### C VIRA #### [facility] [address] [address] [address] Wallace Chandler METAMYELOCYTE % Normal [facility] Comment on above: Performed By: #### C VIRA #### [facility] [address] [place] [address] Dr. Wallace Chandler MONOM# 1.85 103/ul Critically high 0.30-0.80 [facility] Comment on above: Performed By: #### C VIRA #### [facility] [address] [place] [address] Dr. Wallace Chandler MONOM% 9.0 % Normal 1.7-12.0 [facility] Comment on above: Performed By: #### C VIRA #### [facility] [address] [place] [address] Dr. Wallace Chandler MPV 10.0 fL Normal 9.5-13.5 [facility] Comment on above: Performed By: #### C VIRA #### [facility] [address] [place] [address] Dr. Wallace Chandler MYELOCYTE # Normal [facility] Comment on above: Performed By: #### C VIRA #### [facility] [address] [place] [address] Dr. Wallace Chandler MYELOCYTE % Normal [facility] Comment on above: Performed By: #### C VIRA #### [facility] [address] [place] [address] Dr. Wallace Chandler NRBC Normal [facility] Comment on above: Performed By: #### C VIRA #### [facility] [address] [place] [address] Dr. Wallace Chandler PLT 420 103/ul Normal 150-450 [facility] Comment on above: Performed By: #### C VIRA #### [facility] [address] [place] [address] Dr. Wallace Chandler RBC 5.62 106/ul Normal 4.70-6.10 [facility] Comment on above: Performed By: #### C VIRA #### [facility] [address] [place] [address] Dr. Wallace Chandler RDW 12.5 % Normal 11.0-15.0 [facility] Comment on above: Performed By: #### C BCMAN #### [facility] [address] [place], [place] [address] Dr. Wallace Chandler SEG # 16.69 103/ul Critically high 1.40-6.50 [facility] Comment on above: Performed By: #### C BCMAN #### [facility] [address] [address] [address] Wallace Chandler SEG % 81.0 % Critically high 43.0-75.0 [facility] Comment on above: Performed By: #### C BCMAN #### [facility] [address] [id number] Wallace Chandler WBC 20.6 103/ul Critically high 4.0-11.0 [facility] Comment on above: Performed By: #### C BCMAN #### [facility] [address] [address] [address] ABD/PELV W CONon 11-29-19 CT ABD/PELV W CON EXAM: CT ABD/PELV W CON REASON FOR EXAM: Male, 31 years, Right upper quadrant pain. TECHNIQUE: Computed tomography of the abdomen and pelvis is performed in the axial projection from the lung bases to the pubic symphysis. Sagittal and coronal reconstructed images are performed. Dose reduction techniques were achieved by using automated exposure control and/or adjustment of mA and/or KVP according to patient size and/or use of iterative reconstruction technique. A total of 100 mL Omnipaque 300 IV contrast was given. Study was performed without oral contrast. COMPARISON: Chest radiograph, same date FINDINGS: Lung bases: There is patchy bilateral lower lobe airspace disease, right greater than left. There is no pleural effusion. The visualized portions of the heart are unremarkable. Liver: There is diffuse decreased attenuation throughout the liver consistent with steatosis. There are multiple subcentimeter hypoechoic densities within the liver, likely representing cysts. There is mild intrahepatic biliary ductal dilation. Gallbladder: The gallbladder is abnormal. There is gallbladder wall thickening and pericholecystic stranding and fluid. Gallbladder content density appears increased, suggesting sludge. Spleen: The spleen is normal. Pancreas: The pancreas is normal. Adrenal glands: The adrenal glands are normal bilaterally. Right kidney: The kidney is normal in size. There is mild right hydronephrosis versus multiple parapelvic cysts. A punctate calculus is seen in the inferior pole of the right kidney. No ureteral calculus. Left kidney: The kidney is normal in size. There is no renal calculus or hydronephrosis. Stomach: The stomach is normal. Small bowel: The small bowel is normal. Large bowel: The colon is normal. Appendix: The appendix is visualized, and is normal. Aorta: The aorta is normal. IVC: The IVC is normal. Retroperitoneum: There are nonspecific shotty retroperitoneal lymph nodes. Bladder: The bladder is normal. Pelvic organs: Normal prostate gland. Abdominal wall: Normal abdominal wall. Osseous structures: Normal bony structures. IMPRESSION: Findings are suggestive of acute cholecystitis, with distended gallbladder and adjacent inflammatory changes. The gallbladder contents have increased attenuation suggesting sludge. Further evaluation with ultrasound and/or nuclear medicine hepatobiliary scan may be beneficial. Patchy bilateral airspace disease, right greater than left. Question mild right hydronephrosis versus multiple parapelvic cysts. Punctate nonobstructing calculus in the inferior pole of the right kidney. No ureteral calculus. Additional nonacute findings, as detailed above. Electronically authenticated by: BETHANIE RODRIGUEZ Date: 2021-11-28 16:24 Normal [facility]on SARS-CoV-2 (COVID-19) RNA ADRIAN+probe Ql (Unsp spec) Not detected Normal NOT DETECTED [facility] Comment on above: Result Comment: When diagnostic testing is negative, the possibility of a false negative should be considered in the context of a patient's recent exposures and the presence of clinical signs and symptoms consistent with SARS-CoV-2. This test is not yet approved or cleared by the [place] Food and Drug Administration (FDA). This test was developed by [employer], [place], [place]. The performance characteristics of this test were validated by [facility]. The results are not intended to be used as the sole means for clinical diagnosis or patient management decisions. [facility] is authorized under Clinical Laboratory Improvement Amendments (CLIA) to perform high- complexity testing. This test is not yet approved or cleared by the [place] FDA. When there are no FDA-approved or cleared tests available, and other criteria are met, FDA can make tests available under an emergency access mechanism called an Emergency Use Authorization (EUA). The EUA for this test is supported by the [place] of Health and Human Service's declaration that circumstances exist to justify the emergency use of in vitro diagnostics for the detection and/or diagnosis of the virus that causes COVID-19. This EUA will remain in effect for the duration of the COVID-19 declaration justifying emergency of IVDs, unless it is terminated or revoked by the FDA (after which the test may no longer be used). Performed By: #### E RUR #### [facility] [address] [place] [address] Dr. Wallace Chandler LACTATE/LACTIC ACIDon 2021 Lactate [Moles/Vol] 1.4 mmol/L Normal 0.4-2.0 [facility] Comment on above: Performed By: #### E RUR #### [facility] [address] [place] [address] Dr. Wallace Chandler Lactate [Moles/Vol] 1.3 mmol/L Normal 0.4-2.0 [facility] Comment on above: Performed By: #### C BCMAN #### [facility] [address] [place] [address] Dr. Wallace Chandler LIPASEon 11-28-2021 Lipase [Catalytic activity/Vol] 25.0 U/L Critically low 73.0-393.0 [facility] Comment on above: Performed By: #### C BC #### [facility] [address] [place] [address] Dr. Wallace Chandler LIVER PROFILEon 11-28-2021 Albumin [Mass/Vol] 3.7 g/dL Normal 3.4-5.0 [facility] Comment on above: Performed By: #### C BC #### [facility] [address] [place] [address] Dr. Wallace Chandler Albumin/Globulin [Mass ratio] 0.8 {ratio} Normal [facility] Comment on above: Performed By: #### C BC #### [facility] [address] [place] [address] Dr. Wallace Chandler ALP [Catalytic activity/Vol] 78 U/L Normal 46-116 [facility] Comment on above: Performed By: #### C BC #### [facility] [address] [place] [address] Dr. Wallace Chandler ALT [Catalytic activity/Vol] 46 U/L Normal 16-63 [facility] Comment on above: Performed By: #### C BC #### [facility] [address] [place] [address] Dr. Wallace Chandler AST [Catalytic activity/Vol] 21 U/L Normal 15-37 [facility] Comment on above: Performed By: #### C BC #### [facility] [address] [place] [address] Dr. Wallace Chandler BILI, CONJUGATED 0.2 mg/dL Normal 0.0-0.2 [facility] Comment on above: Performed By: #### C BC #### [facility] [address] [place] [address] Dr. Wallace Chandler Bilirubin [Mass/Vol] 1.2 mg/dL Critically high 0.2-1.0 [facility] Comment on above: Performed By: #### C BC #### [facility] [address] [place] [address] Dr. Wallace Chandler Globulin (S) [Mass/Vol] 4.7 g/dL Normal [facility] Comment on above: Performed By: #### C BC #### [facility] [address] [place] [address] Dr. Wallace Chandler Protein [Mass/Vol] 8.4 g/dL Critically high 6.1-8.2 [facility] Comment on above: Performed By: #### C BC #### [facility] [address] [place] [address] Dr. Wallace Chandler PROF CHEM 8 (BAS METB)on Anion gap [Moles/Vol] 14.3 mmol/L Normal [facility] Comment on above: Performed By: #### C BC #### [facility] [address] [place] [address] Dr. Wallace Chandler Calcium [Mass/Vol] 8.8 mg/dL Normal 8.5-10.1 [facility] Comment on above: Performed By: #### C BC #### [facility] [address] [place] [address] Dr. Wallace Chandler Chloride [Moles/Vol] 97 mmol/L Critically low 98-107 [facility] Comment on above: Performed By: #### C BC #### [facility] [address] [place] [address] Dr. Wallace Chandler CO2 [Moles/Vol] 26.4 mmol/L Normal 21.0-32.0 [facility] Comment on above: Performed By: #### C BC #### [facility] [address] [place] [address] Dr. Wallace Chandler Creatinine [Mass/Vol] 0.78 mg/dL Normal 0.70-1.30 [facility] Comment on above: Performed By: #### C BC #### [facility] [address] [place] [address] Dr. Wallace Chandler EGFR-AF NIGERIEN >60 Normal >=60 [facility] Comment on above: Performed By: #### C BC #### [facility] [address] [place] [address] Dr. Wallace Chandler EGFR-NON AF NIGERIEN >60 Normal >=60 [facility] Comment on above: Performed By: #### C BC #### [facility] [address] [place] [address] Dr. Wallace Chandler Glucose [Mass/Vol] 146 mg/dL Critically high 74-106 [facility] Comment on above: Performed By: #### C BC #### [facility] Laboratory [address] [place] [address] Dr. Wallace Chandler Potassium [Moles/Vol] 3.7 mmol/L Normal 3.5-5.1 [facility] Comment on above: Result Comment: SPEC IMEN SLIGHTLY HEMOLYZED, MAY AFFECT K+ RESULT Performed By: #### C BC #### [facility] [address] [place] [address] Dr. Wallace Chandler Sodium [Moles/Vol] 134 mmol/L Critically low 136-145 [facility] Comment on above: Performed By: #### C BC #### [facility] [address] [place] [address] Dr. Wallace Chandler Urea nitrogen [Mass/Vol] 10.0 mg/dL Normal 7.0-18.0 [facility] Comment on above: Performed By: #### C BC #### [facility] [address] [place] [address] Dr. Wallace Chandler Urea nitrogen/Creatini ne [Mass ratio] 12.8 mg/mg Normal [facility] Comment on above: Performed By: #### C BC #### [facility] [address] [place] [address] Dr. Wallace Chandler PROTIMEon 11-28-2021 INR Coag (PPP) [Relative time] 1.11 {INR} Normal [facility] Comment on above: Performed By: #### C BC #### [facility] [address] [place] [address] Dr. Wallace Chandler INR GUIDELINES SEE BELOW Normal [facility] Comment on above: Result Comment: TAWANNA RED INR: 2.0 - 3.0 CONDITIONS NOT LISTED BELOW 2.5 - 3.5 FOR PROSTHETIC HEART VALVE REPLACEMENT 2.5 - 3.5 RECURRENT THROMBOSIS Performed By: #### C BC #### [facility] [address] [place] [address] Dr. Wallace Chandler PT Coag (PPP) [Time] 11.9 s Critically high 9.0-11.6 [facility] Comment on above: Performed By: #### C BC #### [facility] [address] [place] [address] Dr. Wallace Chandler PTTon 11-28-2021 aPTT Coag (Bld) [Time] 29.6 s Normal 22.3-36.2 [facility] Comment on above: Performed By: #### C BCMAN #### [facility] [address] [place] [address] Dr. Wallace Chandler TROPONIN, HIGH SENSITIVITYon 11-28-2021 HSTROP 7.8 pg/mL Normal 4.0-76.1 [facility] Comment on above: Result Comment: CUT- OFF POINTS HAVE BEEN ESTABLISHED BASED ON THE FOURTH UNIVERSAL DEFINITIONS OF MYOCARDIAL INFARCTION. THE UPPER REFERENCE LIMIT (URL) OF TROPONIN, DEFINED THE 99TH PERCENTILE OF cTnI DISTRIBUTION IN A REFERENCE POPULATION, HAS BEEN CONFIRMED THE DECISION THRESHOLD FOR [place] DIAGNOSIS. Performed By: #### C #### [facility] [address] [address] [address] Wallace Chandler XR CHEST 2 Von 11-28-2021 XR CHEST 2 V EXAM: XR CHEST 2 V REASON FOR EXAM: Male, 31 years, Right upper quadrant pain. TECHNIQUE: PA and lateral views of the chest are performed. COMPARISON: None. FINDINGS: The lungs are underinflated. There is elevation of the right hemidiaphragm, with mild right basilar atelectasis. Normal pleura. Normal size heart. Fullness to the right paratracheal region is seen. This may represent artifact from vascular structures versus adenopathy. Normal visualized pulmonary arteries. Normal visualized aortic arch and descending thoracic aorta. Normal visualized thoracic spine. Normal visualized ribs, clavicles, and shoulders. There is no demonstrated abnormality of the visualized soft tissue structures of the upper abdomen. IMPRESSION: Low lung volumes, with right basilar atelectasis. Soft tissue fullness to the right peritracheal region. This may represent artifact from superimposed vascular structures, or adenopathy. Electronically authenticated by: BETHANIE RODRIGUEZ Date: 2021-11-28 16:10 Normal [facility] Vital Signs Date Time Vital Sign Value Performing Clinician Facility 05-02-2023 16:55-0400 Body height 185.42 cm Corinna Wayne Other [facility] Other 05-02-2023 16:55-0400 Body mass index (BMI) [Ratio] 45.88 kg/m2 Corinna Wayne Other [facility] Other 05-02-2023 16:55-0400 Body temperature 98.1 [degF] Corinna Wayne Other [facility] Other 10-03-2023 16:55-0400 Body weight 157.76 kg Corinna Wayne Other [facility] Other 05-02-2023 16:55-0400 Diastolic blood pressure 97 mm[Hg] Corinna Wayne Other [facility] Other 05-02-2023 16:55-0400 Respiratory rate 18 /min Corinna Wayne Other [facility] Other 05-02-2023 16:55-0400 SaO2% (BldA) [Mass fraction] 96 % Corinna Wayne Other [facility] Other 05-02-2023 16:55-0400 Systolic blood pressure 154 mm[Hg] Corinna Wayne Other [facility] Other 09-04-2022 13:30-0500 Body height 185.42 cm Elizabeth Hopper Other [facility] Other 09-04-2022 13:30-0500 Body mass index (BMI) [Ratio] 42.21 kg/m2 Elizabeth Morelmond Other [facility] Other 09-04-2022 13:30-0500 Body temperature 98.7 [degF] Elizabeth Ruchi Other [facility] Other 09-04-2022 13:30-0500 Body weight 145.15 kg Elizabeth Ruchi Other [facility] Other 09-04-2022 13:30-0500 Diastolic blood pressure 83 mm[Hg] Elizabeth Ruchi Other [facility] Other 09-04-2022 13:30-0500 Respiratory rate 18 /min Elizabeth Hopper Other [facility] Other 09-04-2022 13:30-0500 SaO2% (BldA) [Mass fraction] 97 % Elizabeth Hopper Other [facility] Other 09-04-2022 13:30-0500 Systolic blood pressure 152 mm[Hg] Elizabeth Morelmond Other [facility] Other 12-10-2021 08:43-0400 Body temperature 98.6 [degF] Mario NILL [facility] [place] 12-07-2021 13:52-0400 Body temperature 97.52 [degF] Mario NILL [facility] [place] 12-07-2021 13:52-0400 Diastolic blood pressure 104 mm[Hg] Mario NILL [facility] [place] 12-07-2021 13:52-0400 Heart rate 72 /min Mario NILL [facility] [place] 12-07-2021 13:52-0400 Respiratory rate 16 /min Mario NILL [facility] [place] 12-07-2021 13:52-0400 Systolic blood pressure 146 mm[Hg] Mario NILL [facility] [place] Encounters Encounter Date Encounter Type Care Provider Facility Start: 05-02-2023 End: 05-02-2023 ambulatory Corinna Wayne Other [facility] Other Start: 05-02-2023 Office outpatient vi sit 15 minutes Corinna Wayne [facility] Start: 10-29-2022 End: 10-29-[address] JACE ALCANTARA . Facility:[facility] Start: 09-04-2022 End: 09-04-2022 ambulatory Elizabeth Hopper Other [place] [employer] Other Start: 09-04-2022 Office outpatient ne w 20 minutes Elizabeth Hopper [facility] Start: 04-19-2022 ambulatory Netta Wilson Facility:[id number] Start: 02-28-2022 End: 03-01-2022 ambulatory ELIZABETH MARI Facility:[facility] Start: 02-16-2022 End: 02-17-2022 ambulatory ELIZABETH MARI Facility: Start: 01-07-2022 End: 01-08-2022 ambulatory Mario LEE Facility:[facility] Start: 01-07-2022 End: 01-07-2022 Patient encounter procedure Mario LEE [facility] [place] Start: 12-29-2021 End: 12-30-2021 ambulatory JACOB ZAMORANO Facility:[facility] Start: 12-23-2021 End: 12-24-[address] NEO NAJERA Facility: Start: 12-22-2021 End: 12-22-2021 Patient encounter procedure Mario LEE [facility] Start: 12-10-2021 End: 12-10-2021 Patient encounter procedure Mario LEE [facility] [place] Start: 12-09-2021 End: 12-10-[address] MARIO LEE . Facility: Start: 12-07-2021 End: 12-07-2021 Patient encounter procedure Mario LEE [facility] Start: 12-01-2021 End: 12-03-2021 Evaluation and management of inpatient ELIZABETH MARI Facility: Start: 12-01-2021 End: 12-02-2021 ambulatory JACOB ZAMORANO Facility:[facility] Start: 11-28-2021 End: 12-01-2021 Evaluation and management of inpatient ELIZABETH MARI Facility:[facility] Start: 02-12-2021 Patient encounter procedure Dudley Tracey Work Phone: UI-Vrnangzzacdsr-Epascwy rogreg Work Phone: Start: 11-17-2020 Patient encounter procedure Phong Chacko MD AO-Gqypsmtddrckr-Bmdvmxq 3200 Work Phone: Start: 10-23-2020 Patient encounter procedure Phong Chacko MD KU-Gbpqqecnsaoiz-Mruwyrw 3200 Work Phone: Start: 10-02-2020 Patient encounter procedure Phong Chacko MD JI-Xtecpadvrywcz-Zltssma 3200 Work Phone: Start: 09-29-2020 Patient encounter procedure Phong Chacko MD XK-Nbmoaitixfwgu-Fxxquex 3200 Work Phone: Start: 08-28-2020 Patient encounter procedure Phong Chacko MD MO-Zrymrhxduptbg-Yymfhri 3200 Work Phone: Start: 02-21-2020 Patient encounter procedure Phong Chacko MD LH-Eyfbqxxufckpq-Gfdwypn 3200 Work Phone: Start: 01-28-2020 Patient encounter procedure Phong Chacko MD ZY-Jzjoyaitbpnjh-Tgseasz 3200 Work Phone: Start: 12-20-2019 Patient encounter procedure Phong Chacko MD DA-Qdzvvkcscxfdq-Tazbbqm 3200 Work Phone: Procedures Date Procedure Procedure Detail Performing Clinician Start: 11-30-2021 Inspection of Hepatobiliary Duct, Via Natural or Artificial Opening Endoscopic DR JACE ALCANTARA . Start: 11-29-2021 Inspection of Gallbladder, Percutaneous Endoscopic Approach DR JACE ALCANTARA . Start: 11-29-2021 Resection of Gallbladder, Open Approach DR JACE ALCANTARA . Start: 11-29-2021 Cholecystectomy Mario LEE Esophagogastroduodenoscopy M nancy LEE Plan of Treatment Date Care Activity Detail Author Start: 06-11-2021 EPVCORNEA, Provider: Phong Chacko, Status: Pen, Time: 3:30 PM EPVCORNEA, Provider: Phong Chacko, Status: Pen, Time: 3:30 PM TV-Mvzbnghdzvwih-Znxy [place] Work Phone: Start: 03-26-2021 EPVOPTOM, Provider: Netta Wilson, Status: Pen, Time: 11:00 AM EPVOPTOM, Provider: Netta Wilson , Status: Pen, Time: 11:00 AM OB-Wknpmsurcvtqr-Jpit [place] Work Phone: Immunizations Immunization Date Immunization Notes Care Provider Araceli reddy 10-18-2014 tetanus toxoid, reduced diphtheria toxoid, and acellular pertussis vaccine, adsorbed Elizabeth Ruchi Other [facility] Other Payers Date Payer Category Payer Self-pay [id number] 1990 Unknown [id number] 2.16.8 [id number] 1990 Unknown [id number] 2.16.8 [id number] 1990 Unknown [id number] 2.16. [id number] 1990 Unknown [id number] 2.16.84 [id number] 1990 Unknown [id number] 2.16.84 [id number] 1990 Unknown [id number] 2.16.84 [id number] 1990 Unknown [id number] 2.16.84 [id number] 1990 Unknown [id number] 2.16.84 [id number] 1990 Unknown [id number] 2.16.84 [id number] 1990 Unknown [id number] 2.16.84 [id number] 1990 Unknown [id number] 2.16.8 [id number] 1959 Unknown [id number] Self-pay Unknown Social History Date Type Detail Facility Assertion Tobacco smoking consumption unknown (finding) VG-Bsylvunhswexi-Rruv ell 3200 Work Phone: Start: 12-07-2021 Tobacco smoking status Ex-smoker (fi nding) [facility] [place] Tobacco smoking status Smokeless tobacco user within last 30 days [facility] [place] Sex Assigned At Male [facility] [place] Functional Status Date Assessment Result Facility NEGATED: Highlighted row Functional performance Functional status health issues are not documented Disease TT-Gsgmvbhhqtodg-Ve lwvinay 3200 Work Phone: Mental Status Date Assessment Result Facility NEGATED: Highlighted row Cognitive function [Interpretation] Cognitive status health issues are not documented Disease KH-Czjjuoduzomdp-Bs lwell 3200 Work Phone: Clinical Notes 11-28-2021 to 05-02-2023 Note Date & Type Note Facility 05-02-2023 Evaluation note Encounter Date Diagnosis Assessment Notes Apr, Poison kd dermatitis (ICD-10 - L23.7) Discussed diagnosis with patient. Kenalog injection provided in office. Will send in rx of steroid to take as directed. Advised to take medications with food and plenty of water, complete entire course even if feeling better. Patient instructed not to scratch or pick at rash. May use hydrocortisone cream or calamine lotion for topical relief. Patient may also use cool wet compress for itching relief. Keep rash open to air. Wash all clothing/items that could have come into contact with plant oil. Follow up with PCP in 1 week or sooner if symptoms worsen. Immediate eval by ER if develop fever, stiff neck, nausea, vomiting, joint/body aches, increase in swelling, redness, warmth, red streaking, purulent drainage, or any other new or concerning symptoms arise. Patient verbalizes understanding and is agreeable to treatment plan. [facility] Other 02-05-2023 Evaluation note* Encounter Date Diagnosis Assessment Notes Treatment Notes Treatment Clinical Notes Aug, Contact dermatitis, unspecified contact dermatitis type, unspecified trigger (ICD-10 - L25.9) Drink plenty fluids, get plenty of rest. Take the prednisone as prescribed until gone. Take Benadryl as needed for itching. Wash your bedding every day for the next 2 to 3 days. Follow-up with your family physician if no improvement in 2 to 3 days Aug, Other Contact dermati tis home care material was printed [facility] Other 05-01-2022 NoteOP Note OPERATION DATE: 11/29/2021 PREOPERATIVE DIAGNOSIS: Acute cholecystitis. POSTOPERATIVE DIAGNOSIS: Gangrenous acute and chronic cholecystitis without cholelithiasis. PROCEDURE: Attempted laparoscopic cholecystectomy converted to open subtotal cholecystectomy. SURGEON: Mario Lee M.D. ANESTHESIA: General. INDICATIONS AND CONSENT: Patient is a 31-year-old male presented to the emergency room yesterday with a 36 hour history of upper abdominal pain. Workup revealed leukocytosis as well as evidence of inflammation, thickening of the gallbladder with sludge. He had an elevated white blood cell count but normal liver function tests, normal amylase/lipase. He subsequently underwent an ultrasound that revealed thickening of the gallbladder wall with sludge and no stones. He was hydrated, given IV antibiotics and now proceeds for laparoscopic cholecystectomy. Indications, risks, benefits, alternatives of proceeding were explained extensively to the patient, including risks of bleeding, infection, bile duct injury, bowel injury, need for intraoperative cholangiogram, postoperative ERCP, open procedure, blood clot, pulmonary embolus, heart attack, anesthetic complications of need for further surgery. All of his questions were answered. Informed consent was obtained. PROCEDURE: Patient brought to the operating room, placed in the supine position. General anesthesia was induced. Patient prepped and draped in the usual sterile fashion. A supraumbilical incision was made with the scalpel blade and carried down through subcutaneous tissue. Using blunt dissection, the fascia was grasped and incision. Two 0 Vicryl stay sutures were placed in either side of the midline fashion. Awilda trocar was inserted and secured using the stay sutures. The abdomen was insufflated with carbon dioxide to a pressure of 15 mm/Hg. The scope was inserted. The abdomen was visualized. There was noted to be a very large abdominal wall making visualization difficult. He also had a large, fatty omentum and large fatty falciform ligament. The 5 mm port was placed in the subxiphoid area. Under direct visualization, [place] grasper was used to mobilize the omentum which was stuck in the right upper quadrant. There was noted to be a gangrenous hemorrhagic gallbladder with marked inflammatory changes of the omentum and all the surrounding tissues. Two 5 mm ports were then placed. Patient was placed in reverse Trendelenburg position with the right side up. Because of the large amount of fatty omentum and inflammation, we were unable to gain adequate visualization. Attempted to try to put a liver retractor in. Because of the fatty falciform, we could not visualize this well enough in order to place the liver retractor. Because of all of these factors and marked hemorrhagic gangrenous changes of the gallbladder, we elected to abandon the laparoscopic approach and proceed with an open surgery. Ports were removed. A right subcostal incision was made connecting two of the port incision. This was carried down through subcutaneous tissue using electrocautery. The fascia was incised. The rectus muscle was divided. The abdomen was entered sharply. Bookwalter retractor was placed. There was noted to be extensive inflammatory changes. Hemorrhagic gangrenous gallbladder was entered and drained. There were no stones. There was just dark, old bile that was sent for culture. Because of the marked inflammatory changes at the mikael hepatis, it was very friable and socked in. The infundibulum extended fairly deep and medial. It was felt it would not have been safe to proceed with dissection in the area, since there was very poor visualization and marked acute and chronic inflammatory changes. Therefore, subtotal cholecystectomy was performed. The upper portion of the thickened and necrotic gallbladder was excised. Some of the back wall was left in place and cauterized. This was carried down to the area of the infundibulum. There was no evidence of bile leak from the infundibulum in the area of the cystic duct, because it was extending fairly deep and medially, was unable to get to the area to place a stitch. A 15 round ARSENIO drain was placed in that area and brought up through the lateral port site, secured to the skin using a 3-0 nylon suture. The abdomen was then copiously irrigated. There was good hemostasis. The umbilical fascia was closed with 0 Vicryl figure of eight suture. The right subcostal incision was closed in layers with a #1 PDS suture as well as #1 Prolene suture and some interrupted #1 Vicryl sutures. Subcutaneous tissue was irrigated. The subcutaneous tissue was re-approximated with interrupted 2-0 Monocryl suture. The skin was closed with skin prateek. The other port sites were closed with 4-0 subcuticular Monocryl suture and skin glue. Sterile dressings were applied as well as a drain sponge, tape and abdominal (more content not included)...[id number] NoteOP Note OPERATION DATE: 11/29/2021 PREOPERATIVE DIAGNOSIS: Acute cholecystitis. POSTOPERATIVE DIAGNOSIS: Gangrenous acute and chronic cholecystitis without cholelithiasis. PROCEDURE: Attempted laparoscopic cholecystectomy converted to open subtotal cholecystectomy. SURGEON: Mario Lee M.D. ANESTHESIA: General. INDICATIONS AND CONSENT: Patient is a 31-year-old male presented to the emergency room yesterday with a 36 hour history of upper abdominal pain. Workup revealed leukocytosis as well as evidence of inflammation, thickening of the gallbladder with sludge. He had an elevated white blood cell count but normal liver function tests, normal amylase/lipase. He subsequently underwent an ultrasound that revealed thickening of the gallbladder wall with sludge and no stones. He was hydrated, given IV antibiotics and now proceeds for laparoscopic cholecystectomy. Indications, risks, benefits, alternatives of proceeding were explained extensively to the patient, including risks of bleeding, infection, bile duct injury, bowel injury, need for intraoperative cholangiogram, postoperative ERCP, open procedure, blood clot, pulmonary embolus, heart attack, anesthetic complications of need for further surgery. All of his questions were answered. Informed consent was obtained. PROCEDURE: Patient brought to the operating room, placed in the supine position. General anesthesia was induced. Patient prepped and draped in the usual sterile fashion. A supraumbilical incision was made with the scalpel blade and carried down through subcutaneous tissue. Using blunt dissection, the fascia was grasped and incision. Two 0 Vicryl stay sutures were placed in either side of the midline fashion. Awilda trocar was inserted and secured using the stay sutures. The abdomen was insufflated with carbon dioxide to a pressure of 15 mm/Hg. The scope was inserted. The abdomen was visualized. There was noted to be a very large abdominal wall making visualization difficult. He also had a large, fatty omentum and large fatty falciform ligament. The 5 mm port was placed in the subxiphoid area. Under direct visualization, [place] grasper was used to mobilize the omentum which was stuck in the right upper quadrant. There was noted to be a gangrenous hemorrhagic gallbladder with marked inflammatory changes of the omentum and all the surrounding tissues. Two 5 mm ports were then placed. Patient was placed in reverse Trendelenburg position with the right side up. Because of the large amount of fatty omentum and inflammation, we were unable to gain adequate visualization. Attempted to try to put a liver retractor in. Because of the fatty falciform, we could not visualize this well enough in order to place the liver retractor. Because of all of these factors and marked hemorrhagic gangrenous changes of the gallbladder, we elected to abandon the laparoscopic approach and proceed with an open surgery. Ports were removed. A right subcostal incision was made connecting two of the port incision. This was carried down through subcutaneous tissue using electrocautery. The fascia was incised. The rectus muscle was divided. The abdomen was entered sharply. Bookwalter retractor was placed. There was noted to be extensive inflammatory changes. Hemorrhagic gangrenous gallbladder was entered and drained. There were no stones. There was just dark, old bile that was sent for culture. Because of the marked inflammatory changes at the mikael hepatis, it was very friable and socked in. The infundibulum extended fairly deep and medial. It was felt it would not have been safe to proceed with dissection in the area, since there was very poor visualization and marked acute and chronic inflammatory changes. Therefore, subtotal cholecystectomy was performed. The upper portion of the thickened and necrotic gallbladder was excised. Some of the back wall was left in place and cauterized. This was carried down to the area of the infundibulum. There was no evidence of bile leak from the infundibulum in the area of the cystic duct, because it was extending fairly deep and medially, was unable to get to the area to place a stitch. A 15 round ARSENIO drain was placed in that area and brought up through the lateral port site, secured to the skin using a 3-0 nylon suture. The abdomen was then copiously irrigated. There was good hemostasis. The umbilical fascia was closed with 0 Vicryl figure of eight suture. The right subcostal incision was closed in layers with a #1 PDS suture as well as #1 Prolene suture and some interrupted #1 Vicryl sutures. Subcutaneous tissue was irrigated. The subcutaneous tissue was re-approximated with interrupted 2-0 Monocryl suture. The skin was closed with skin prateek. The other port sites were closed with 4-0 subcuticular Monocryl suture and skin glue. Sterile dressings were applied as well as a drain sponge, tape and abdominal (more content not included)...[facility]ments Appointment Date:12/10/2021 08:20:00 AM Scheduled Provider:Mario LEE MD Location:[facility] Appointment Type: Post Op 15 Diagnostic Tests Pending * Hepatic Function Panel 12/07/21 * CBC w/ Auto Diff 12/07/21 * Basic Metabolic Panel 12/07/21 * Lipase Level 12/07/21 [facility] [place] Evaluation + Plan note Future Appointments Appointment Date:12/22/2021 04:20:00 PM Scheduled Provider:Mario LEE MD Location:[facility] Appointment Type:GS Post Op 15 [facility] [place] Evaluation + Plan note Future Appointments Appointment Date:01/04/2022 04:00:00 PM Scheduled Provider:Mario LEE MD Location:[facility] Appointment Type:GS Post Op 15 [facility] [place] History general Narrative - Reported* Type Description Date Medical History asthma Medical History hypertension Surgical History tonsillectomy and adenoidectomy Surgical History cholecystectomy 2021 Hospitalization History see above [employer] Other Hospital course Narrative No data available for this section [facility] Discharge instructions No data available for this section [facility] [place] Instructions* Name Dates Details Instructions not documented WB-Huoirzaioqjsz-Esokbfk 3209 Work Phone: Summary Purpose Family History No Family History Records FoundNo Family History Records FoundNo Family History Records FoundNo Family History Records FoundNo Family History Records FoundNo Family History Records Found Advance Directives No Advanced Directives Records FoundNo Advanced Directives Records FoundNo Advanced Directives Records FoundNo Advanced Directives Records FoundNo Advanced Directives Records FoundNo Advanced Directives Records Found Additional Source Comments (unrecognized sect ion and content) No Status Records FoundNo Status Records FoundNo Status Records FoundNo Status Records FoundNo Status Records FoundNo Status Records Found INFORMATION SOURCE (unrecogn ized section and content) DATE CREATED AUTHOR 12/22/2021 [facility] DATE CREATED AUTHOR AUTHOR'S ORGANIZ ATION 01/14/2022 [facility] DATE CREATED AUTHOR AUTHOR'S ORGANIZ ATION 05/01/2022 [facility] DATE CREATED AUTHOR AUTHOR'S ORGANIZ ATION 05/01/2022 [employer] DATE CREATED AUTHOR AUTHOR'S ORGANIZ ATION 11/02/2022 [facility] DATE CREATED AUTHOR AUTHOR'S ORGANIZ ATION 01/06/2023 [facility] REASON FOR VISIT (unrecogniz ed section and content) POSSIBLE POISON KD LEFT ARM POISON KD, EVERYWHERE FOR RECORDS PERTAINING TO PATIENTS WHO ARE OR HAVE BEEN ENROLLED IN A CHEMICAL DEPENDENCY/SUBSTANCEABUSE PROGRAM, SOME INFORMATION MAY BE OMITTED. This clinical summary was aggregated from multiple sources. Caution should be exercised in using it in the provision of clinical care. This summary normalizes information from multiple sources, and as a consequence, information in this document may materially change the coding, format and clinical context of patient data. In addition, data may be omitted in some cases. CLINICAL DECISIONS SHOULD BE BASED ON THE PRIMARY CLINICAL RECORDS. [facility]. provides no warranty or guarantee of the accuracy or completeness of information in this document.
--- NOTE | 2023-08-11 22:39 | ED_ITS ---
HPI - Extremity Injury (Lower) General Chief Complaint: Extremity Injury, Lower Stated Complaint: Wound Check Time Seen by Provider: 08/11/23 22:35 Source: patient Mode of arrival: walk-in Limitations: no limitations History of Present Illness HPI Narrative: patient seen last week by his doctor for swelling of the right leg. states ultrasound performed and no blood clot. Prescribed bactrim ds. States the pain of the leg has improved because he can now walk on it but the redness not resolving and tonight developed red streak just above his knee. No fever or chills or nausea. States he feels well Related Data Home Medications Medication Instructions Recorded Confirmed lisinopril 20 mg tablet 20 mg PO DAILY 08/11/23 08/11/23 sulfamethoxazole 800 1 tab PO Q12H 08/11/23 08/11/23 mg-trimethoprim 160 mg tablet Allergies Allergy/AdvReac Type Severity Reaction Status Date / Time Penicillins Allergy Unknown Verified 08/11/23 22:01 Review of Systems ROS Status of ROS 10 or more systems reviewed and unremark able except as noted in history and below [facility] Social History Smoking status: Former smoker Exam Constitutional Vital Signs, click to edit/add: Last Vital Signs Temp 98.2 F 08/11/23 21:55 Pulse 95 H 08/11/23 21:55 Resp 16 08/11/23 21:55 BP 157/87 H 08/11/23 21:55 Pulse Ox 96 08/11/23 21:55 O2 Del Method Room Air 08/11/23 21:55 Common normals: no apparent distress, oriented x3, no limitations, healthy appearing, alert and well nourished [facility] Common normals: normocephalic and head/scalp atraumatic Eye Common normals: EOMs intact bilaterally and conjunctivae normal Respiratory Common normals: normal respiratory effort, no retractions, no use of accessory muscles and clear to auscultation bilaterally Cardio Common normals: regular rate, regular rhythm, S1 normal heart sound and S2 normal heart sound GI Common normals: Normal to inspection, nondistended, normoactive bowel sounds present, soft to palpation and non-tender Other: no inguinal tenderness Extremity Other: erythema of the left sandhu. mild swelling of the leg. red streak just above right knee. Mild tenderness of the right leg Neuro Common normals: oriented x3, CN's II-XII intact bilaterally, moves all extremities and no focal motor deficits Psych Appearance: grossly normal Course Vital Signs Vital signs: Vital Signs Temperature 98.2 F 08/11/23 21:55 Pulse Rate 95 H 08/11/23 21:55 Respiratory Rate 16 08/11/23 21:55 Blood Pressure 157/87 H 08/11/23 21:55 Pulse Oximetry 96 08/11/23 21:55 Oxygen Delivery Method Room Air 08/11/23 21:55 Temperature 98.2 F 08/11/23 21:55 Pulse Rate 95 H 08/11/23 21:55 Respiratory Rate 16 08/11/23 21:55 Blood Pressure 157/87 H 08/11/23 21:55 Pulse Oximetry 96 08/11/23 21:55 Oxygen Delivery Method Room Air 08/11/23 21:55 MDM - Extremity Injury (Lower) MDM Narrative Medical decision making narrative: patient presents with cellulitis of his right leg. Pain has improved with treatment but still has erythema and tonight a red streak. No fever or chills. He looks good. Does not feel bad. WBC normal. Does have elevation of inflammatory markers. Given IV clindamycin and discharged home to follow up with his doctor Discharge Plan Discharge Chief Complaint: Extremity Injury, Lower Clinical Impression: Cellulitis of leg, right Patient Disposition: Home, Self-Care Prescriptions / Home Meds: No Action sulfamethoxazole-trimethoprim 800-160 mg tablet 1 tab PO Q12H lisinopril 20 mg tablet 20 mg PO DAILY Instructions: Cellulitis (ED) Stand Alone Forms: Portal Instructions Referrals: KATELYN MARI [Primary Care Provider] - 1 week
[2023-08-11] MEDS: CLINDAMYCIN PHOSPHATE/D5W 900 MG/50 ML PIGGYBACK 100 MG IV (22:54)
[2023-08-11 23:00] LABS: Basophils Absolute Auto 0.1 10^3/uL (0.0-0.1); Basophils Percent Auto 1.5 % (0.2-2.0); Eosinophils Absolute Auto 0.4 10^3/uL (0.0-0.7); Eosinophils Percent Auto 5.5 % (0.9-7.0); Hematocrit 42.3 % (42.0-54.0); Hemoglobin 13.8 g/dL (14.0-18.0); Immature Granulocytes Abs Auto 0.02 10^3/uL (0.00-0.03); Immature Granulocytes Pct Auto 0.3 % (0.0-0.5); Lymphocytes Absolute Auto 2.3 10^3/uL (1.2-3.8); Lymphocytes Percent Auto 35.9 % (20.5-60.0); Mean Corpuscular HGB Conc 32.6 g/dL (29.9-35.2); Mean Corpuscular Hemoglobin 28.3 pg (25.9-34.0); Mean Corpuscular Volume 86.7 fL (80.0-94.0); Mean Platelet Volume 9.2 fL (9.5-13.5); Monocytes Absolute Auto 0.5 10^3/uL (0.3-0.8); Monocytes Percent Auto 7.4 % (1.7-12.0); Neutrophils Absolute Auto 3.2 10^3/uL (1.4-6.5); Neutrophils Percent Auto 49.4 % (43.0-75.0); Platelet Count 426 10^3/uL (150-450); Red Blood Count 4.88 10^6/uL (4.70-6.10); Red Cell Distribution Width 12.3 % (11.0-15.0); White Blood Count 6.5 10^3/uL (4.0-11.0)
[2023-08-11 23:19] LABS: Erythrocyte Sedimentation Rate 70 mm/hr (<=15)
[2023-08-11 23:25] VITALS: BP 137/75; PULSE 80; RESP 16; O2SAT 96
[2023-08-11 23:34] LABS: Anion Gap 13.1; BUN Creatinine Ratio 15.7; Calcium 8.8 mg/dL (8.5-10.1); Carbon Dioxide 27.7 mmol/L (21.0-32.0); Chloride 104 mmol/L (98-107); Estimated GFR (African America >60 (>=60); Estimated GFR (Non-African Ame >60 (>=60); Glucose 117 mg/dL (74-106); Potassium 3.8 mmol/L (3.5-5.1); Sodium 141 mmol/L (136-145)
[2023-08-11 23:36] LABS: C Reactive Protein 0.95 mg/dL (<=0.50)
[2023-08-11] MEDS: CLINDAMYCIN HCL 150 MG CAPSULE 300 MG PO (23:59)
== END 2023-08-12 00:02 | disposition home or self-care (01) ==
PROVIDERS: Emergency Provider Internal Medicine; PCP Nurse Practitioner Family
DX: L03.115 Cellulitis of right lower limb (principal); Z79.899 Other long term (current) drug therapy; Z87.891 Personal history of nicotine dependence
CPT/HCPCS: 36415; 80048; 85025; 85652; 86140; 96365; 99284; J0736

== ENCOUNTER 2024-08-29 15:36 | Outpatient (RCR) | payer BC, SELFPAY | END 2024-09-28 08:21 | disposition home or self-care (01) | LOC: PT 15:36 | PROVIDERS: PCP Nurse Practitioner Family | DX: M72.2 Plantar fascial fibromatosis (principal); M25.571 Pain in right ankle and joints of right foot; M25.572 Pain in left ankle and joints of left foot | CPT/HCPCS: 97035; 97110; 97140; 97161 ==